=== PATIENT | female | born 1955 | race Caucasian/White ===

== ENCOUNTER 2019-08-04 06:00 | Outpatient (RCR) | payer BC, SELFPAY | END 2019-08-05 23:59 | disposition home or self-care (01) | LOC: WPT 06:00 | PROVIDERS: Family Provider Nurse Practitioner Family; PCP Nurse Practitioner Family; Referring Provider Nurse Practitioner Family; Visit Provider Nurse Practitioner Family | DX: S39.012D Strain of muscle, fascia and tendon of lower back, subsequent encounter (principal); X58.XXXD Exposure to other specified factors, subsequent encounter | CPT/HCPCS: 97163 ==

== ENCOUNTER 2019-09-11 06:38 | Outpatient (CLI) | payer BC, SELFPAY ==
--- NOTE | 2019-09-11 | CT_ITS ---
WS: [id number] CT LUMBAR SPINE TECHNIQUE: Contrast-enhanced CT of the lumbar spine with coronal and sagittal reformatted images. CLINICAL INFORMATION: ACUTE LOW BACK PAIN COMPARISON: None. DLP: 2668.[address] scans at [facility] use at least one of these dose optimization techniques: automat ed exposure control; mA and/or kV adjustment per patient size (includes targeted exams where dose is matched to clinical indication); or iterative reconstruction. FINDINGS: Mild lumbar curve convex left. Mild compression of the superior endplates at L2 and L3 with concave s uperior endplate deformity. Mild loss vertebral body height. No retropulsion. Vertebral body heights are otherwise well preserved. Superior endplate compression at L2 and L3 have an subacute appearance with visualized fracture clefts more prominent at L2. L1-L2: Mild disc bulging with slight effacement of the ventral thecal sac. Mild right and no signific ant left foraminal narrowing. L2-L3: Mild annular bulging with slight effacement of ventral thecal sac. Mild facet arthropathy. Spi nal canal and foramen are patent. L3-L4: Tiny left foraminal protrusion with mild left foraminal narrowing. Right foramen is patent. Sp inal canal is patent. L4-L5: Mild disc bulging with slight effacement of ventral thecal sac. Mild left and no significant r ight foraminal narrowing. Mild facet arthropathy. L5-S1: No significant disc bulging. Spinal canal and foramen are patent. Mild to moderate facet arthr opathy. Partially visualized large left renal cyst measuring 5.5 CM. Smaller left renal cysts. Larger cyst de monstrates some peripheral calcification. Small right renal cyst. Adrenal glands are normal. Infrarenal abdominal aortic aneurysm with peripheral mural thrombus is only partially visualized. Fus iform aneurysm measures approximately 4.0 x 3.7 x 9.7 cm AP by transverse by craniocaudal. CT/CT lumbar spine w con [id number] IMPRESSION: 1. Mild compression of the superior endplates L2 and L3 have an acute to subac mcgrath appearance. No retropulsion. Mild loss vertebral body height with concave s uperior endplate deformities. 2. No high-grade central canal stenosis. 3. Partially evaluated infrarenal abdominal aortic aneurysm measuring 4.0 x 3. 7 x 9.7 cm AP by transverse by craniocaudal.This can be further evaluated with CTA.
--- NOTE | 2019-09-11 06:50 | USCV_ITS ---
Miladys Henriquez Age: 64 Gender: F : 1955 Exam Date: 09/11/2019 07:13 Ordering Phys: Pam Woo Technologist: Gurwinder Puente Exam Location[place] [facility] [place] Indication: AAA HISTORY: Diameter (cm) AP x Transverse x Length Velocity (cm/s) Waveform Prox Aorta: 2.15 x 1.81 x 67.10 Mid Aorta: 2.98 x 3.51 x 59.10 Distal Aorta: 4.01 x 4.31 x 34.00 Right Iliac Prox: 0.97 x 1.39 x 218.80 Left Iliac Prox: 1.10 x 1.45 x 103.00 Stent Prox Landing x x Aneurysmal Sac Max x x Lt Lat Sac Dim Rt Lat Sac Dim Stent Dist Landing x x Right Iliac Stent x x Left Iliac Stent x x Right Renal Art Left Renal Art FINDINGS: CONCLUSIONS Moderate arteriovascular disease within the abdominal aorta. AAA in the distal aorta measuring 4.2 x 4.4 cm AP x transverse with peripheral mural thrombus. No evidence of bilateral iliac aneurysm. Stephen Marino MD (Electronically Signed) Final Date: 11 Sep 2019 12:45 S
[2019-09-11] MEDS: iodixanol 320 mg/mL 100mL Btl IV (08:38)
== END 2019-09-11 06:39 | disposition home or self-care (01) ==
PROVIDERS: PCP Nurse Practitioner Family; Visit Provider Nurse Practitioner Family
DX: M54.5 Low back pain (principal); I71.4 Abdominal aortic aneurysm, without rupture
CPT/HCPCS: 72132; 76706

== ENCOUNTER 2019-10-03 08:12 | Outpatient (CLI) | payer BC, SELFPAY ==
--- NOTE | 2019-10-03 08:17 | US_ITS ---
WS: [id number] RENAL ULTRASOUND HISTORY: CYST OF KIDNEY COMPARISON: None available. TECHNIQUE: 2-D and color Doppler imaging of the kidney submitted. Right kidney: 10.2 cm x 5.0 cm x 4.7 cm. No hydronephrosis. No cortical thinning. Small cortical based cysts within the kidney. The largest me asures 1.3 cm in the mid kidney. No solid mass. Left kidney: 14.7 cm x 5.2 cm x 5.6 cm. Minimally complex cyst from the upper pole measures 6.2 x 5.5 x 5.5 cm. There are additional small co rtical cysts throughout the kidney which are minimally complex. No solid mass. Aorta: Normal. Urinary Bladder: Well-distended urinary bladder. There is artifact in the urinary bladder which may b e air. US/US renal BI* [id number] IMPRESSION: 1. Bilateral renal cysts with no obstruction. 2. Artifact in the urinary bladder is likely air. Correlate for cystitis or ai r producing organisms.
== END 2019-10-03 08:13 | disposition home or self-care (01) ==
LOC: RAD 08:15
PROVIDERS: PCP Nurse Practitioner Family; Visit Provider Nurse Practitioner Family
DX: N28.1 Cyst of kidney, acquired (principal)
CPT/HCPCS: 76770

== ENCOUNTER → 2019-10-14 08:22 | Outpatient (BNVA) | payer BC, SELFPAY | PROVIDERS: PCP Nurse Practitioner Family; Referring Provider Nurse Practitioner Family; Visit Provider Anesthesiology Pain Medicine | DX: G89.29 Other chronic pain (principal); M54.9 Dorsalgia, unspecified; M47.816 Spondylosis without myelopathy or radiculopathy, lumbar region; S32.000A Wedge compression fracture of unspecified lumbar vertebra, initial encounter for closed fracture; X58.XXXA Exposure to other specified factors, initial encounter; Z90.49 Acquired absence of other specified parts of digestive tract; Z79.899 Other long term (current) drug therapy | CPT/HCPCS: 99204 ==

== ENCOUNTER → 2019-11-13 09:11 | Outpatient (BNVA) | payer BC, SELFPAY | PROVIDERS: PCP Nurse Practitioner Family; Visit Provider Anesthesiology Pain Medicine | DX: G89.29 Other chronic pain (principal); M47.816 Spondylosis without myelopathy or radiculopathy, lumbar region; S32.000A Wedge compression fracture of unspecified lumbar vertebra, initial encounter for closed fracture; M54.9 Dorsalgia, unspecified; M25.551 Pain in right hip; X58.XXXA Exposure to other specified factors, initial encounter; Z90.49 Acquired absence of other specified parts of digestive tract | CPT/HCPCS: 99214 ==

== ENCOUNTER → 2019-12-02 12:24 | Outpatient (BNVA) | payer BC, SELFPAY | PROVIDERS: PCP Nurse Practitioner Family; Visit Provider Anesthesiology Pain Medicine | DX: G89.29 Other chronic pain (principal); M54.41 Lumbago with sciatica, right side; M25.551 Pain in right hip; M54.9 Dorsalgia, unspecified | CPT/HCPCS: 20610; 77002; 77003; J1030; J3490 ==

== ENCOUNTER 2019-12-15 09:54 | Outpatient (CLI) | payer BC, SELFPAY ==
--- NOTE | 2019-12-15 10:15 | CT_ITS ---
WS: [id number] CT LUMBAR SPINE, noncontrast. HISTORY: Fracture TECHNIQUE: Contiguous 2.5 mm axial imaging are performed. Sagittal and coronal reformats are submitte d and reviewed. All CT scans at [facility] use at least one of these dose optimization te chniques: automated exposure control; mA and/or kV adjustment per patient size (includes targeted exa ms where dose is matched to clinical indication); or iterative reconstruction. IV contrast: None DLP: 1891.75 mGycm COMPARISON: 09/11/2019 Mild LEFT convex curvature of the lumbar spine is unchanged. L2 and L3 compression fractures with mil d sclerosis indicating healing along the superior endplates. Fractures approximately 20% without retr opulsion. There is a new T12 compression fracture of approximately 30% which is biconcave. No retropu lsion. New L4 compression fracture involving the superior endplate by 10%. There is mild sclerosis al paris the superior endplate. No significant retropulsion. L1-2: Mild annular disc bulging. Mild effacement of ventral thecal sac without significant stenosis. L2-3: Diffuse annular disc bulging. Mild effacement of the ventral thecal sac. No stenosis. L3-4: Diffuse annular disc bulging and mild osteophytic ridging. Broad-based shallow LEFT foraminal d isc protrusion causing mild contact upon L3. L4-5: Mild annular disc bulging with a shallow LEFT foraminal disc protrusion with no nerve root cont act. L5-S1: Mild osteophytic ridging with a central disc protrusion. No stenosis. Abdominal aortic aneurysm extends over length of 10.5 cm with a maximum transverse diameter 4.4 cm. P robably not changed significantly since the prior study. Large superior pole LEFT renal cyst with a m aximum diameter 5.[address]/CT lumbar spine wo con* [id number] IMPRESSION: 1. Stable subacute L2 and L3 compression fractures involving the superior endp lates. 2. New since 09/11/2019 is a biconcave fracture at T12 of 30% without retropulsi on. 3. New since 09/21/2019 is mild anterior compression fracture of L4 by 10% with out retropulsion. 4. Stable abdominal aortic aneurysm with a maximum transverse diameter 4.4 cm. 5. No significant central stenosis.
== END 2019-12-15 09:55 | disposition home or self-care (01) ==
LOC: RADWPI 10:00
PROVIDERS: PCP Nurse Practitioner Family; Visit Provider Licensed Practical Nurse
DX: S32.020A Wedge compression fracture of second lumbar vertebra, initial encounter for closed fracture (principal); S32.030A Wedge compression fracture of third lumbar vertebra, initial encounter for closed fracture; S32.040A Wedge compression fracture of fourth lumbar vertebra, initial encounter for closed fracture; S22.088A Other fracture of T11-T12 vertebra, initial encounter for closed fracture; X58.XXXA Exposure to other specified factors, initial encounter; G89.29 Other chronic pain; S32.000A Wedge compression fracture of unspecified lumbar vertebra, initial encounter for closed fracture; M54.41 Lumbago with sciatica, right side; M47.816 Spondylosis without myelopathy or radiculopathy, lumbar region; M54.9 Dorsalgia, unspecified; M48.061 Spinal stenosis, lumbar region without neurogenic claudication; Z90.49 Acquired absence of other specified parts of digestive tract
CPT/HCPCS: 72131; 99214

== ENCOUNTER → 2019-12-23 13:24 | Outpatient (BNVA) | payer BC, SELFPAY | PROVIDERS: PCP Nurse Practitioner Family; Visit Provider Anesthesiology Pain Medicine | DX: M47.816 Spondylosis without myelopathy or radiculopathy, lumbar region (principal); S32.000A Wedge compression fracture of unspecified lumbar vertebra, initial encounter for closed fracture; M54.9 Dorsalgia, unspecified; X58.XXXA Exposure to other specified factors, initial encounter | CPT/HCPCS: 64493; 64494; 64495; 99214; J3490 ==

== ENCOUNTER 2020-01-06 11:44 | Outpatient (CLI) | payer BC, SELFPAY ==
--- NOTE | 2020-01-06 15:15 | XR_ITS ---
WS: [id number] SCREENING DEXA SCAN [employer] CLINICAL INFORMATION: Fracture COMPARISON: None. FINDINGS: The L1-L4 bone mineral density measures 0.928 g/cm2. This corresponds to a T score score of -2.1 and Z score of -1.4. Left femoral neck bone mineral density measures 0.663 g/cm2. This corresponds to a T score of -2.7 an d Z score of -2.2. Right femoral neck bone mineral density measures 0.651 g/cm2. This corresponds to a T score -2.8of an d Z score of -2.2. Mean femoral neck bone mineral density measures 0.657 g/cm2. This corresponds to a T score of -2.8 an d Z score of -2.2. XR/XR DEXA axial skeleton* [id number] IMPRESSION: Osteoporosis Patient's FRAX calculated 10 year probability for major osteoporotic fracture i s 30.1 % and osteoporotic hip fracture is 6.8%.
== END 2020-01-06 11:45 | disposition home or self-care (01) ==
LOC: RADWPI 11:50
PROVIDERS: PCP Nurse Practitioner Family; Visit Provider Licensed Practical Nurse
DX: S32.000A Wedge compression fracture of unspecified lumbar vertebra, initial encounter for closed fracture (principal); X58.XXXA Exposure to other specified factors, initial encounter; M81.0 Age-related osteoporosis without current pathological fracture; G89.29 Other chronic pain; M47.816 Spondylosis without myelopathy or radiculopathy, lumbar region; M54.9 Dorsalgia, unspecified; Z90.49 Acquired absence of other specified parts of digestive tract
CPT/HCPCS: 77080; 99213

== ENCOUNTER → 2020-01-20 13:38 | Outpatient (BNVA) | payer BC, SELFPAY | PROVIDERS: PCP Nurse Practitioner Family; Visit Provider Anesthesiology Pain Medicine | DX: M47.816 Spondylosis without myelopathy or radiculopathy, lumbar region (principal); M54.9 Dorsalgia, unspecified | CPT/HCPCS: 64493; 64494; 64495; J3490 ==

== ENCOUNTER → 2020-02-04 09:18 | Outpatient (BNVA) | payer BC, SELFPAY | PROVIDERS: PCP Nurse Practitioner Family; Visit Provider Anesthesiology Pain Medicine | DX: G89.29 Other chronic pain (principal); M47.816 Spondylosis without myelopathy or radiculopathy, lumbar region; M54.9 Dorsalgia, unspecified; S32.000A Wedge compression fracture of unspecified lumbar vertebra, initial encounter for closed fracture; X58.XXXA Exposure to other specified factors, initial encounter; Z90.49 Acquired absence of other specified parts of digestive tract; Z79.891 Long term (current) use of opiate analgesic | CPT/HCPCS: 99213; 99214 ==

== ENCOUNTER 2020-02-04 11:09 | Outpatient (CLI) | payer BC, SELFPAY ==
--- NOTE | 2020-02-04 11:14 | XR_ITS ---
WS: [id number] LUMBAR SPINE TECHNIQUE: 5 views of the lumbar spine CLINICAL INFORMATION: pain, poss. new compression fracture COMPARISON: CT 12/14 FINDINGS: Osteopenia. Mild lumbar curve convex left. Bladder stimulator. Vascular calcification. Cholecystecto my clips. Anterior wedging lower thoracic spine. Mild compression superior endplates with concave compression deformities at L2, L3, L4, and L5. Mild compression of the inferior endplate at L1. Disc space narrowing with vacuum disc phenomenon worse at L1-2. Mild disc space narrowing L3-L4 and L4-L5. Moderate facet arthropathy lower lumbar spine. Aort ic calcification. XR/XR lumbar spine min 4V [id number] IMPRESSION: 1. Osteopenia with mild lumbar curve. 2. New mild compression deformity involving the superior endplate of L5 appear s new since the prior CT December 15 2019. This can be further evaluated with lum bar spine CT. 3. Mild compression deformities at L2, L3, and L4 appear stable. 4. Chronic anterior wedging and compression at T12 appears stable.
== END 2020-02-04 11:10 | disposition home or self-care (01) ==
LOC: RADWPI 11:11
PROVIDERS: Family Provider Nurse Practitioner Family; PCP Nurse Practitioner Family; Visit Provider Anesthesiology Pain Medicine
DX: M85.88 Other specified disorders of bone density and structure, other site (principal); S22.080A Wedge compression fracture of T11-T12 vertebra, initial encounter for closed fracture; X58.XXXA Exposure to other specified factors, initial encounter
CPT/HCPCS: 72114

== ENCOUNTER → 2020-02-10 11:55 | Outpatient (BNVA) | payer BC, SELFPAY | PROVIDERS: Family Provider Nurse Practitioner Family; PCP Nurse Practitioner Family; Visit Provider Nurse Practitioner Family | DX: Z11.59 Encounter for screening for other viral diseases (principal); Z20.828 Contact with and (suspected) exposure to other viral communicable diseases; J06.9 Acute upper respiratory infection, unspecified | CPT/HCPCS: 87635 ==

== ENCOUNTER 2020-03-22 12:40 | Outpatient (CLI) | payer BC, SELFPAY ==
--- NOTE | 2020-03-22 13:00 | CT_ITS ---
WS: [id number] Exam: CT angio abdomen [id number] Date/Time of Exam: 03/22/2020 1:11 PM Reason For Exam: AAA DLP: 661.[address] scans at [facility] use at least one of these dose optimization techniques: automat ed exposure control; mA and/or kV adjustment per patient size (includes targeted exams where dose is matched to clinical indication); or iterative reconstruction. Compared to CT scan of the lumbar spine performed 12/15/2019. CTA of the abdomen is performed in the axial plane with sagittal coronal reformatted images. 100 mL o f nonionic intravenous contrast administered. An infrarenal abdominal aortic aneurysm is identified that measures 4.4 cm in greatest transverse moni meter. There is a large amount of mural thrombus in the aneurysm. No dissection or leakage identified . The aneurysm is stable in size. The celiac, SMA and bilateral renal arteries are patent. The DENVER is also patent. The iliac bifurcation demonstrates atherosclerotic plaquing but no aneurysm identified in the iliac region. Mild groundglass infiltrate in the left lower lobe as well as the posterior basal segment of the righ t lower lobe. This is nonspecific and could represent either pneumonia or chronic change. The liver a nd spleen are unremarkable. Hiatal hernia noted. The gallbladder is surgically absent. A 5.9 cm cyst is seen at the upper pole of the left kidney. There are additional smaller bilateral renal cysts note d. Normal adrenal glands. No renal obstruction. The pancreas appears normal. Small bowel loops are no t dilated. No significant large bowel abnormality seen. Moderate amount of stool in the colon. No valdez e air. No lymphadenopathy. The portal vein and IVC are patent. A neurostimulator is noted along the l eft flank region. Leads extend into the region of the sacrum. No destructive bone lesions. Stable ap pearing insufficiency compression fractures of T12, L2, L3 and L4 noted. No new fractures are seen. CT/CT angio abdomen [id number] IMPRESSION: 1. Infrarenal abdominal aortic aneurysm measuring 4.4 cm in greatest transverse diameter stable in appearance. There is a large amount of mural thrombus in th e aneurysm. No dissection or leakage. 2. The major branches of the abdominal aorta as well as the iliac bifurcation a re patent. 3. Groundglass infiltrates in both lung bases. This could represent either mix mill tender pili change or pneumonia. 4. Additional nonacute findings in the abdomen as detailed above.
[2020-03-22 13:32] LABS: Blood Urea Nitrogen 7 mg/dL (8-23)
[2020-03-22] MEDS: iohexol 350 mg/mL 100 mL Btl IV (13:47)
== END 2020-03-22 12:41 | disposition home or self-care (01) ==
LOC: RADWPI 12:44
PROVIDERS: PCP Nurse Practitioner Family; Visit Provider Internal Medicine Cardiovascular Disease
DX: I71.4 Abdominal aortic aneurysm, without rupture (principal); R91.8 Other nonspecific abnormal finding of lung field
CPT/HCPCS: 74175; 82565; 84520; Q9967

== ENCOUNTER → 2020-03-24 10:38 | Outpatient (BNVA) | payer BC, SELFPAY | PROVIDERS: PCP Nurse Practitioner Family; Referring Provider Nurse Practitioner Family; Visit Provider Internal Medicine | DX: E27.1 Primary adrenocortical insufficiency (principal); E55.9 Vitamin D deficiency, unspecified; K21.9 Gastro-esophageal reflux disease without esophagitis; M35.9 Systemic involvement of connective tissue, unspecified; M81.0 Age-related osteoporosis without current pathological fracture; M80.00XD Age-related osteoporosis with current pathological fracture, unspecified site, subsequent encounter for fracture with routine healing; R32 Unspecified urinary incontinence | CPT/HCPCS: 99205 ==

== ENCOUNTER → 2020-03-25 10:52 | Outpatient (BNVA) | payer BC, SELFPAY | PROVIDERS: PCP Nurse Practitioner Family; Visit Provider Internal Medicine | DX: K21.9 Gastro-esophageal reflux disease without esophagitis (principal); E55.9 Vitamin D deficiency, unspecified; E27.1 Primary adrenocortical insufficiency; M35.9 Systemic involvement of connective tissue, unspecified; M81.0 Age-related osteoporosis without current pathological fracture | CPT/HCPCS: 82306 ==

== ENCOUNTER → 2020-03-26 11:08 | Outpatient (BNVA) | payer BC, SELFPAY | PROVIDERS: PCP Nurse Practitioner Family; Visit Provider Internal Medicine | DX: E27.1 Primary adrenocortical insufficiency (principal); E55.9 Vitamin D deficiency, unspecified; K21.9 Gastro-esophageal reflux disease without esophagitis; M35.9 Systemic involvement of connective tissue, unspecified; M81.0 Age-related osteoporosis without current pathological fracture | CPT/HCPCS: 80053; 82310; 82784; 83516; 83970; 84100; 84439; 84443 ==

== ENCOUNTER → 2020-04-13 09:33 | Outpatient (BNVA) | payer BC, SELFPAY | PROVIDERS: PCP Nurse Practitioner Family; Visit Provider Nurse Practitioner Family | DX: E87.1 Hypo-osmolality and hyponatremia (principal) | CPT/HCPCS: 80048 ==

== ENCOUNTER → 2020-04-21 13:50 | Outpatient (BNVA) | payer BC, SELFPAY | PROVIDERS: PCP Nurse Practitioner Family; Visit Provider Anesthesiology Pain Medicine | DX: M47.816 Spondylosis without myelopathy or radiculopathy, lumbar region (principal); M54.9 Dorsalgia, unspecified; S32.000A Wedge compression fracture of unspecified lumbar vertebra, initial encounter for closed fracture; X58.XXXA Exposure to other specified factors, initial encounter; Z79.891 Long term (current) use of opiate analgesic | CPT/HCPCS: 64635; 64636; J1030 ==

== ENCOUNTER 2020-04-27 08:12 | Outpatient (CLI) | payer BC, SELFPAY ==
[2020-04-27 08:32] VITALS: BMI 28.1
--- NOTE | 2020-04-27 08:32 | NMCV_ITS ---
NM alessandro perf SPECT r/s* [id number] Miladys Henriquez Age: 65 Gender: F : 1955 Exam Date: 04/27/2020 09:25 Ordering Phys: Iman oRmero MD ([email or web address]) Technologist: AIMEE Steiner Exam Location: [facility] [place] Indications: SOB STRESS TEST Please see separate stress test report in [facility] for full findings IMAGE PROTOCOL Rest/Stress 1 Exercise Day Radiopharmaceutical Dose (mCi) Administration Site Administered by Rest: Tc-99m 10.9 IV AIMEE Steiner Sestamibi Stress:Tc-99m 32.2 IV AIMEE Souza Sestamiedwin Rest: 27-Apr-2020 60 Discovery 630 Stress: 27-Apr-2020 30 Discovery 630 Radiopharmaceutical was injected at 85 % maximum heart rate. Images obtained in supine and prone position. SPECT RESULTS Technical Quality: Good Raw Data Analysis: Breast attenuation Image Corrections: No attenuation or motion correction applied Summed Stress Score: 0 Summed Rest Score: 0 Summed Difference Score: 0 PERFUSION FINDINGS Uniform Ibrahima tracer uptake with no significant perfusion abnormalities. FUNCTIONAL RESULTS (calculated via Gated SPECT) Stress Image LV EF (%): 82 Stress EDV (mL):45 TID: 0.84 Stress ESV (mL):8 FUNCTIONAL FINDINGS: Segmental wall motion analysis revealed mild hypokinesia of the LV apex IMPRESSIONS 1. Unremarkable myocardial perfusion imaging 2. Normal LV ejection fraction of 82%. 3. LV wall motion analysis revealing no gross wall motion abnormalities. 4. Normal LV volume. No significant coronary ischemia, based on the above findings Dr Lida Salas MD [facility] (Electronically Signed) Final Date: 04 May 2020 01:56 S
--- NOTE | 2020-04-27 08:32 | ECG_ITS ---
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 Interpretive Statements NAME OF STUDY: EXERCISE SESTAMIBI STRESS TEST INDICATION: Chest Pain Baseline blood pressure of 126/85 mm Hg, heart rate 82 beats per minute. EKG showed normal sinus rhythm, normal axis with nonspecific ST depression. The patient exercised for 2 minutes 30 seconds on a standard Lazaro protocol. Patient attained a maximum heart rate of 140 beats per minute(89% of the maximum predicted heart rate) with a blood pressure at the peak exercise of 151/100 mm Hg. The EKG at the peak exercise revealed sinus tachycardia with no significant ST-T wave changes. Interpretation limited by baseline artifact. Patient did not have any chest pain or any significant arrhythmis with the exercise. During the recovery phase, there were no new changes. Blood pressure at the end of the recovery phase was 146/88 mm Hg with a heart rate of 87 beats per minute and oxygen saturation 98%. Isolated PVCs noted in recovery. CONCLUSION: 1. Normal EKG response to treadmill exercise. 2. No exercise-induced chest pain or cardiac arrhythmia 3. Decreased exercise tolerance, attained a maximum of 4.6 METs. Maximum VO2 of 16.1 mL/kg/min. 4. Baseline normal blood pressure with normal response to exercise. 5. Exaggerated heart rate response with exercise. 6. Perfusion scan will be documented separately. Electronically Signed On 05-03-2020 17:40:44 CAR FILLER by Josie Navarrete M.D. [id number]
[2020-04-27 10:09] VITALS: BP 174/94; PULSE 97
[2020-04-27 11:36] LABS: Anion Gap 15.5 (5-19); Blood Urea Nitrogen 11 mg/dL (8-23); Calcium 8.8 mg/dL (8.5-10.5); Carbon Dioxide 25 mmol/L (22-29); Chloride 92 mmol/L (98-107); Glomerular Filtration Rate 63.2 mL/min (90-130); Glucose 104 mg/dL (65-115); Osmolality Calculated 268 mOsm/kg (285-295); Potassium 3.5 mmol/L (3.5-5.1); Sodium 129 mmol/L (136-145)
[2020-05-02 22:07] LABS: Plasma Renin Activity LC/MS/MS 9.09 ng/mL/h (0.25-5.82)
== END 2020-04-27 08:13 | disposition home or self-care (01) ==
LOC: CDL 08:13
PROVIDERS: Internal Medicine; PCP Nurse Practitioner Family; Visit Provider Internal Medicine Cardiovascular Disease
DX: R06.02 Shortness of breath (principal); R07.9 Chest pain, unspecified; E27.1 Primary adrenocortical insufficiency
CPT/HCPCS: 36415; 78452; 80048; 84244; 93017; A9500

== ENCOUNTER → 2020-05-03 12:48 | Outpatient (BNVA) | payer BC, SELFPAY | PROVIDERS: PCP Nurse Practitioner Family; Visit Provider Anesthesiology Pain Medicine | DX: M47.816 Spondylosis without myelopathy or radiculopathy, lumbar region (principal); M54.9 Dorsalgia, unspecified; S32.000D Wedge compression fracture of unspecified lumbar vertebra, subsequent encounter for fracture with routine healing; X58.XXXD Exposure to other specified factors, subsequent encounter | CPT/HCPCS: 64635; 64636; J1030 ==

== ENCOUNTER → 2020-05-05 08:36 | Outpatient (BNVA) | payer BC, SELFPAY | PROVIDERS: PCP Nurse Practitioner Family; Visit Provider Internal Medicine | DX: E27.1 Primary adrenocortical insufficiency (principal); E87.1 Hypo-osmolality and hyponatremia; M80.00XD Age-related osteoporosis with current pathological fracture, unspecified site, subsequent encounter for fracture with routine healing | CPT/HCPCS: 99213 ==

== ENCOUNTER → 2020-05-10 09:47 | Outpatient (BNVA) | payer OTHER, SELFPAY | PROVIDERS: PCP Nurse Practitioner Family; Visit Provider Internal Medicine | DX: E87.1 Hypo-osmolality and hyponatremia (principal) | CPT/HCPCS: 80048 ==

== ENCOUNTER → 2020-05-18 13:45 | Outpatient (BNVA) | payer OTHER, SELFPAY | PROVIDERS: PCP Nurse Practitioner Family; Visit Provider Anesthesiology Pain Medicine | DX: G89.29 Other chronic pain (principal); M47.816 Spondylosis without myelopathy or radiculopathy, lumbar region; S32.000D Wedge compression fracture of unspecified lumbar vertebra, subsequent encounter for fracture with routine healing; X58.XXXD Exposure to other specified factors, subsequent encounter; M54.9 Dorsalgia, unspecified; M54.5 Low back pain; Z90.49 Acquired absence of other specified parts of digestive tract; Z79.891 Long term (current) use of opiate analgesic | CPT/HCPCS: 99214 ==

== ENCOUNTER → 2020-06-01 09:58 | Outpatient (BNVA) | payer OTHER, SELFPAY | PROVIDERS: PCP Nurse Practitioner Family; Visit Provider Internal Medicine | DX: E87.1 Hypo-osmolality and hyponatremia (principal) | CPT/HCPCS: 80048 ==

== ENCOUNTER → 2020-06-03 10:16 | Outpatient (BNVA) | payer OTHER, SELFPAY | PROVIDERS: PCP Nurse Practitioner Family; Visit Provider Internal Medicine | DX: E27.1 Primary adrenocortical insufficiency (principal); E87.1 Hypo-osmolality and hyponatremia; I71.4 Abdominal aortic aneurysm, without rupture; M80.00XD Age-related osteoporosis with current pathological fracture, unspecified site, subsequent encounter for fracture with routine healing | CPT/HCPCS: 99214 ==

== ENCOUNTER → 2020-07-13 10:42 | Outpatient (BNVA) | payer OTHER, SELFPAY | PROVIDERS: PCP Nurse Practitioner Family; Visit Provider Anesthesiology Pain Medicine | DX: G89.29 Other chronic pain (principal); M54.41 Lumbago with sciatica, right side; M47.816 Spondylosis without myelopathy or radiculopathy, lumbar region; M54.9 Dorsalgia, unspecified; S32.000D Wedge compression fracture of unspecified lumbar vertebra, subsequent encounter for fracture with routine healing; X58.XXXD Exposure to other specified factors, subsequent encounter; F17.210 Nicotine dependence, cigarettes, uncomplicated; Z90.49 Acquired absence of other specified parts of digestive tract; Z79.891 Long term (current) use of opiate analgesic | CPT/HCPCS: 99213; 99214 ==

== ENCOUNTER → 2020-07-19 10:22 | Outpatient (BNVA) | payer OTHER, SELFPAY | PROVIDERS: PCP Nurse Practitioner Family; Referring Provider Nurse Practitioner Family; Visit Provider Urology | DX: R32 Unspecified urinary incontinence (principal); R33.9 Retention of urine, unspecified; N39.0 Urinary tract infection, site not specified | CPT/HCPCS: 81003 ==

== ENCOUNTER → 2020-08-20 10:18 | Outpatient (BNVA) | payer OTHER, SELFPAY | PROVIDERS: PCP Nurse Practitioner Family; Visit Provider Internal Medicine | DX: E87.1 Hypo-osmolality and hyponatremia (principal) | CPT/HCPCS: 80048 ==

== ENCOUNTER → 2020-10-05 10:29 | Outpatient (BNVA) | payer OTHER, SELFPAY | PROVIDERS: PCP Nurse Practitioner Family; Visit Provider Anesthesiology Pain Medicine | DX: G89.29 Other chronic pain (principal); M54.9 Dorsalgia, unspecified; M47.816 Spondylosis without myelopathy or radiculopathy, lumbar region; S32.000D Wedge compression fracture of unspecified lumbar vertebra, subsequent encounter for fracture with routine healing; X58.XXXD Exposure to other specified factors, subsequent encounter; Z90.49 Acquired absence of other specified parts of digestive tract; Z79.899 Other long term (current) drug therapy; Z87.891 Personal history of nicotine dependence | CPT/HCPCS: 99213 ==

== ENCOUNTER 2020-10-25 10:15 | Outpatient (CLI) | payer OTHER, SELFPAY ==
[2020-10-25 10:56] LABS: Blood Urea Nitrogen 9 mg/dL (8-23)
--- NOTE | 2020-10-25 10:56 | CT_ITS ---
WS: [id number] CTA ABDOMEN TECHNIQUE: Noncontrast plus contrast enhanced CTA of the abdominal aorta with coronal and sagittal re formatted images and additional MIP Images. CLINICAL INFORMATION: I71.4 - Abdominal aortic aneurysm, without rupture COMPARISON: CT March 22, 2020 DLP: 686.[address] scans at [facility] use at least one of these dose optimization techniques: automat ed exposure control; mA and/or kV adjustment per patient size (includes targeted exams where dose is matched to clinical indication); or iterative reconstruction. FINDINGS: Small moderate esophageal hiatal hernia. Diffuse fatty infiltration liver. Cholecystectomy clips. Lef t renal cyst measuring 5.4 x 5.7 cm unchanged. Moderate chronic emphysematous changes in the lung bas es. Adrenal glands are normal. Normal renal parenchymal enhancement. No hydronephrosis. Additional sm aller bilateral renal cysts. Splenic granulomas. Normal appendix in the right lower quadrant. Normal celiac and SMA origins. Renal ostia are patent. Abdominal aortic aneurysm measuring 4.3 x 4.9 x 8.7 cm AP by transverse by craniocaudal unchanged fro m previous. DENVER is patent. Chronic compression deformities in the lower thoracic and lumbar spine are unchanged. CT/CT angio abdomen [id number] IMPRESSION: 1. Previously described infrarenal abdominal aortic aneurysm is unchanged krystle uring 4.3 x 4.9 x 8.7 AP by transverse by craniocaudal. 2. Celiac and SMA are patent. DENVER is patent. 3. Proximal renal arteries are patent. 4. Stable left renal cyst measuring 5.7 x 5.4 CM. 5. Prior cholecystectomy. 6. Small to moderate esophageal hiatal hernia.
[2020-10-25] MEDS: iohexol 350 mg/mL 100 mL Btl IV (11:09)
== END 2020-10-25 10:16 | disposition home or self-care (01) ==
PROVIDERS: Radiology Neuroradiology; PCP Nurse Practitioner Family; Visit Provider Internal Medicine Cardiovascular Disease
DX: I71.4 Abdominal aortic aneurysm, without rupture (principal); Q61.01 Congenital single renal cyst; Z90.49 Acquired absence of other specified parts of digestive tract; K44.9 Diaphragmatic hernia without obstruction or gangrene
CPT/HCPCS: 74175; 82565; 84520; Q9967

== ENCOUNTER → 2020-10-26 12:47 | Outpatient (BNVA) | payer OTHER, SELFPAY | PROVIDERS: PCP Nurse Practitioner Family; Visit Provider Urology | DX: N39.0 Urinary tract infection, site not specified (principal); R33.9 Retention of urine, unspecified | CPT/HCPCS: 81003 ==

== ENCOUNTER → 2020-11-25 09:54 | Outpatient (BNVA) | payer OTHER, SELFPAY | PROVIDERS: PCP Nurse Practitioner Family; Visit Provider Internal Medicine Cardiovascular Disease | DX: I71.4 Abdominal aortic aneurysm, without rupture (principal); I10 Essential (primary) hypertension; R07.2 Precordial pain | CPT/HCPCS: 80048; 85025; 85610; 87635 ==

== ENCOUNTER → 2020-12-02 05:50 | Day surgery (SDC) | payer OTHER, SELFPAY ==
[2020-12-02 06:12] VITALS: BMI 31.1
[2020-12-02 06:34] VITALS: BP 125/77; PULSE 81; RESP 16; TEMP 36.8; O2SAT 96
[2020-12-02] MEDS: diphenhydrAMINE 50 mg Capsule PO (06:50)
--- NOTE | 2020-12-02 07:45 | PC.NURSE ---
pt being sent home prior to procedure. no beds available post procedure. dr patel spoke to pt and it was decided to reschedule.
== END ==
PROVIDERS: PCP Nurse Practitioner Family; Visit Provider Internal Medicine Cardiovascular Disease
DX: Z53.9 Procedure and treatment not carried out, unspecified reason (principal)
CPT/HCPCS: J1644; J2250; J3010; J7030; Q0163

== ENCOUNTER → 2020-12-17 08:33 | Outpatient (BNVA) | payer OTHER, SELFPAY | PROVIDERS: PCP Nurse Practitioner Family; Visit Provider Internal Medicine Cardiovascular Disease | DX: Z20.822 Contact with and (suspected) exposure to COVID-19 (principal); R07.2 Precordial pain | CPT/HCPCS: 80048; 85025; 85610; 87635 ==

== ENCOUNTER 2020-12-22 07:20 | Day surgery (SDC) | payer OTHER, SELFPAY ==
[2020-12-22] VITALS (33 sets, daily range): BP systolic 95–155; BP diastolic 64–114; PULSE 66–84; RESP 16–24; TEMP 36.6–36.9; O2SAT 91–98; BMI 31.1
--- NOTE | 2020-12-22 07:30 | XACV_ITS ---
Ht: 170 cm Wt: 90 kg BSA: 2.09 m2 Gender: Female : 1955 Any Known Allergies: Other Exam Priority: Routine Indication(s): - Chest Pain in spite of Medical Tx - Chest pain Procedure(s): Procedure Description: Diagnostic procedure Procedure Description: PCI procedure Procedure Description: Left Heart Catheterization Procedure Description: Drug Eluting Coronary Stent Procedure Description: PTCA Procedure Description: Miscellaneous Procedure Description: ACT Diagnostic Cath Status: Elective Diagnostic Findings * Left Main has no disease. * Right Coronary Artery has no disease. * Proximal Left Anterior Descending: moderate 50% stenosis, THEODORE: 3 flow. * Mid Left Anterior Descending: severe 90% stenosis, THEODORE: 3 flow. * Mid Circumflex: mild 40% stenosis, THEODORE: 3 flow. * Coronary angiography shows co-dominance. Interventional Findings * Mid Left Anterior Descendin% stenosis treated with a AB MINI TREK 1.50X20 RX BALLOON, AB TREK 2.50X15 RX BALLOON, MDAdy Iglesias AIDA 3.0X26 SONYA, and MDT KHUSHBU EUPHORA RX [id number] BALLOON. 0% residual stenosis, THEODORE: 3 flow. Conclusions 1. 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 2. There is severe coronary artery disease with two vessel disease. 3. Mid Left Anterior Descending was treated with a Balloon, Balloon, Drug Eluting Stent, and Balloon. Recommendations * Continue current medical management and risk factor modification. Diagnostic RX Recommendation: PCI w/o planned CABG Clinical Evaluation EBL: 5mL-10mL Procedural Details Pre-Procedure Time Out. Identified patient by full name and date of as verbalized by the patient/guarantor. Does the consent match the physician's order: Yes. Accurate & Complete Informed Consent: Yes. Inpatient/Outpatient History & Physical on Chart: Yes. If H&P is completed, is and addenduem needed: Yes; If yes, is the addendum complete: N/A. Visualize and Verify Site with Patient/Guarantor: N/A. Relevant Radiology Images available: Yes. Pre-op teaching completed and patient verbalized understanding. The risks, benefits, and alternatives of sedation and/or procedure were discussed by physician. The patient agrees to continue. Procedure started. Admit Source: Out Patient. Current Diagnosis : Chest Pain. [facility] Clinical Fraility Score: 3: Managing Well. 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 Chest Pain Symptom Assessment: Typical Angina Symptoms. Cardiovascular Instability: No. Correct patient, site and procedure confirmed by cath team. Current diagnosis: Chest Pain; Suspected CAD. PERRLA. Strong, equal hand author's agent bilaterally. Lungs clear x 5 lobes. IV Site on Arrival: 18 gauge in the left anticubital. IV Fluids: 0.9% NaCl at KVO. 0 mL infused prior to technology lab teacher. Pre Procedural Pulses: bilateral radial was 3+. Pre Procedural Pulses: bilateral posterior tibial was Doppled. Pre Procedural Pulses: bilateral dorsalis pedis was Doppled. Oxygen started at 2liters/min via nasal canula. right radial was prepped with chloroprep then draped in the usual sterile fashion. right groin was prepped with chloroprep then draped in the usual sterile fashion. Physician notified. Baseline sample Acquired. HR: 74 BPM. Equipment: 5F - Femoral. Equipment: 5F - Radial. Equipment: 6F - Femoral. Equipment: Peripheral. Equipment: 6F - Radial. Physician arrived. Physician scrubbed in. Immediate Pre-Procedure Time Out. Correct Patient: Yes; Correct Procedure: Yes; Correct Site: Yes; Correct Patient Position: Yes; Correct Supplies: Yes; Dried Flammable Prep: Yes; Blood Products Available: N/A;. Lidocaine 1% infiltrated to the right radial. Heparinized Saline (2 units/mL), 1000 mL bag. Cardiac Cath Pack. ACIST Manifold Kit Model BT 2000. Unable to obtain radial access. MD attempting to gain access in the Femoral artery. An attempt to gain access to the right radial artery was unsuccessful. Manual pressure was held as needed to stop the bleeding. Abandoning radial approach. Unable to obtain access. Lidocaine 1% infiltrated to the right groin. Arterial access obtained with micropuncture set. A CRD 5F JL4 Diagnostic Catheter was advanced over the wire and used for left coronary angiography. Catheter removed over the standard wire. A CRD 5F JR4 Diagnostic Catheter was advanced over the wire and used for right coronary angiography. Multiple views taken of left coronary artery. Multiple views taken of right coronary artery. Catheter inserted over the standard wire. Patient's family updated. 6 greenlandic XB 3SH guide catheter was inserted over the wire. Inventory is CRD 6FR XB 3 SH GUIDE. INVENTORY IS ENDOFLATOR, COPILOT, COUGAR XT WIRE. Guide seated in the LCS. [place] guidewire was advanced through the guide catheter to lesion in the mid LAD. Inventory is TR 180cm Runthrough NS extra floppy 0.014 wire. [place] wire unable to cross lesion. Removed. [place] guidewire was advanced through the guide catheter to lesion in the mid LAD. Guidewire advanced across lesion. Inflation number : 1 A AB MINI TREK 1.50X20 RX BALLOON was prepped and advanced across the Mid LAD , then inflated to 16 ARA for 0:37 seconds. Inflation number: 2 The AB MINI TREK 1.50X20 RX BALLOON was reinflated across the Mid LAD, to 16 ARA for 0:21 seconds. Inflation number: 3 The AB MINI TREK 1.50X20 RX BALLOON was reinflated across the Mid LAD, to 16 ARA for 0:23 seconds. Balloon out. Inflation number : 4 A AB TREK 2.50X15 RX BALLOON was prepped and advanced across the Mid LAD , then inflated to 16 ARA for 0:28 seconds. Angiography performed. Balloon out. Inflation Number : 5 A JOHN Iglesias AIDA 3.0X26 SONYA -Lot Number# [id number] was prepped and advanced across the Mid LAD. The stent was deployed at 12 ARA for 0:30 seconds. EXP 06-18-2022. Stent balloon out over wire. Angiography performed. Inflation number : 6 A MDT NC EUPHORA RX [id number] BALLOON was prepped and advanced across the Mid LAD , then inflated to 12 ARA for 0:14 seconds. Inflation number: 7 The MDT NC EUPHORA RX [id number] BALLOON was reinflated across the Mid LAD, to 12 ARA for 0:11 seconds. Inflation number: 8 The MDT NC EUPHORA RX [id number] BALLOON was reinflated across the Mid LAD, to 12 ARA for 0:13 seconds. Balloon out. Angiography performed. Wire out. Angiography performed. Guide catheter out over wire. ACT drawn. Results 312 seconds. Therapeutic limits - pre-heparin administration 90-150 seconds and monitoring heparin during a vascular procedure >250 seconds. Physician review of films. Scrubbed out. A Suture was successful obtaining hemostatsis at the Right Femoral artery insertion site. Sheath(s) sutured into position with 2-0 silk and sterile 4x4's and Op-site applied over the site. No oozing or signs and symptoms of hematoma noted. Arterial sheath flushed and connected to tranducer and pressure bag with heparinized saline. Post Procedure: Pulses reassessed and unchanged. PERRLA. Strong, equal hand author's agent bilaterally. Medication's Wasted: Lidocaine 1% = 1 ml. Medication's Wasted: Nitro = 49.75 mg. Total IV fluids: 157 mL. Fluoro: 17:04. Contrast type used: Omnipaque 300 mgI/mL, 500 mL bottle. [id number]. Post-op diagnosis: Single Vessel Obstructive CAD. Complications: None. Estimated blood loss: 5mL-10mL. Procedure completed. Patient transferred by bed to CPRU. Vital chart was stopped. Access Site Site: Right Femoral artery Sheath Size: 6 Fr Hemostasis Method: Suture Hemostasis Success: Successful Procedure Medications Start: 9:59 AM Stop: 9:59 AM Medication: Versed Amount: 1 mg Route: I.V. Start: 9:59 AM Stop: 9:59 AM Medication: Fentanyl Amount: 50 mcg Route: I.V. Start: 10:01 AM Stop: 10:01 AM Medication: Versed 1 mg and Fentanyl 25 mcg Amount: 1 Route: I.V. Start: 10:05 AM Stop: 10:05 AM Medication: Nitrogylcerin Amount: 50 mcg Start: 10:08 AM Stop: 10:08 AM Medication: Versed 1 mg and Fentanyl 25 mcg Amount: 1 Route: I.V. Start: 10:18 AM Stop: 10:18 AM Medication: Versed Amount: 1 mg Route: I.V. Start: 10:28 AM Stop: 10:28 AM Medication: Heparin Amount: 8000 units Route: I.V. Start: 10:32 AM Stop: 10:32 AM Medication: Versed Amount: 1 mg Route: I.V. Start: 10:48 AM Stop: 10:48 AM Medication: Versed Amount: 1 mg Route: I.V. Start: 10:48 AM Stop: 10:48 AM Medication: Aggrastat 12.5 mg/250 mL Amount: 45 ml Route: I.V. bolus Start: 10:51 AM Stop: 10:51 AM Medication: Heparin Amount: 2000 units Route: I.V. Start: 10:53 AM Stop: 10:53 AM Medication: Aggrastat 12.5 mg/250 mL Amount: 16.2 ml/hr Route: I.V. drip Start: 11:04 AM Stop: 11:04 AM Medication: Nitrogylcerin Amount: 200 mcg Route: I.C. Start: 11:09 AM Stop: 11:09 AM Medication: Brilinta Amount: 180 mg Route: P.O. I, the attending physician, have reviewed and verified all procedure medications. Yes, all medications given per verbal order History/Risk Factors Hypertension: Yes Dyslipidemia: No Peripheral Arterial Disease (PAD): No Myocardial Infarction (IA): No Obesity: Yes Renal Disease: No Tobacco Use: Former Prior Interventions PCI: No CABG: No Valve Surgery: No Report Signatures Finalized by Iman Romero MD on 01/04/2021 08:54 PM
[2020-12-22] MEDS: diphenhydrAMINE 50 mg Capsule PO (08:09)
--- NOTE | 2020-12-22 08:31 | P.HP_ITS ---
Same Day Surgery H&P Indication for Procedure/HPI DATE OF PROCEDURE: December 22, 2020 CHIEF COMPLAINT/INDICATIONFOR SURGICAL PROCEDURE: Worsening of chest pressure along with shortness of breath in a patient with history of PAD/aneurysm PREOP DIAGNOSIS: Chest pressure PLANNED PROCEDRUE: Operation Date: 12/22/20 08:30 Proposed Procedures p Cardiac Catheterization left 9.458 R06.02(Left) - Iman Romero MD 65-year-old female past medical history significant for COPD, history of triple AAA moderate size, hypertension hyperlipidemia who has been struggling with chest pressure along with shortness of breath. 6 months ago patient had a negative stress test despite of optimization of medicine she continues to worsen not to the extent that 2-3 times a week patient has anginal symptoms it is the reason we decided to proceed with left heart cath. Today she is here for it. Patient has been explained all risk benefit and alternative for the procedure. Patient has been explained the risk of urgent emergent bypass surgery major minor bleed stroke arrhythmia hematoma infection and compartment syndrome. She would like to proceed with it. Medications/Allergies* Home Medications Medication Instructions Recorded Confirmed Type albuterol sulfate 2.5 mg INHALATION Q6H PRN 09/24/19 12/22/20 History magnesium oxide 250 mg PO DAILY 09/24/19 12/22/20 History fluoxetine 20 mg capsule 40 mg PO DAILY cap 10/14/19 12/22/20 History montelukast 10 mg tablet 10 mg PO DAILY 10/14/19 12/22/20 History cephalexin 250 mg capsule 250 mg PO DAILY cap 05/05/20 12/22/20 History ropinirole 0.5 mg tablet 2 mg PO .bedtime tab 05/05/20 12/22/20 History fluticasone fur. 100 mcg-umeclid 1 inh INHALATION DAILY 06/03/20 12/22/20 History 62.5 mcg-vilant 25 mcg inhalat.powder fluticasone propionate 50 1 spray INTRANASAL .PRN g 07/19/20 12/22/20 History mcg/actuation nasal spray,suspension methocarbamol 750 mg tablet 1,500 mg PO QID PRN tab 07/19/20 12/22/20 History omeprazole 20 mg capsule,delayed 20 mg PO .2 DAILY cap 07/19/20 12/22/20 History release potassium chloride 20 mEq 20 meq PO DAILY tab 07/19/20 12/22/20 History tablet,extended release cholecalciferol (vitamin D3) 10 10 mcg PO BID cap 10/26/20 12/22/20 History mcg (400 unit) capsule losartan 100 mg tablet 50 mg PO DAILY tab 11/11/20 12/22/20 History metformin 500 mg tablet 500 mg PO BID tab 11/11/20 12/22/20 History alendronate 70 mg PO PER PKG DIR 12/02/20 12/22/20 History Allergies/Adverse Reactions Allergy/AdvReac Type Severity Reaction Status Date / Time citalopram [From Celexa] Allergy unk Verified 12/08/20 13:36 Penicillins Allergy unk Verified 12/08/20 13:36 simvastatin Allergy unk Verified 12/08/20 13:36 sulfasalazine Allergy unk Verified 12/08/20 13:36 [From Sulfazine] Current Medications: Generic Name Dose Route Start Last Admin Trade Name Freq PRN Reason Stop Dose Admin Sodium Chloride 1,000 mls @ 50 mls/hr 12/22/20 07:30 12/22/20 08:09 Sodium Chloride 0.9% IV 12/23/20 03:29 Not Given .Q20H ONE Pertinent History/Comorbid Conditions* Medical History (Updated 07/19/20 @ 11:44 by Teri Espinoza APRN) AAA (abdominal aortic aneurysm) Abdominal aortic aneurysm [place] disease Chronic steroid use Chronic right hip pain Essential hypertension GERD (gastroesophageal reflux disease) Lumbar compression fracture Osteoporosis Recurrent UTI Urinary retention Surgical History (Updated 07/19/20 @ 16:02 by Antonio Concepcion MD) H/O cataract extraction BILATERAL H/O dilation and curettage H/O tubal ligation Hx of hysterectomy Hx of tonsillectomy Incontinence in female Status post placement of InterStim by Dr. Girma Rouse at [facility] Family History (Updated 07/19/20 @ 10:46 by Isabella Wu LPN) Father, AT AGE 69 Mother, AT AGE 37 Diabetes Emphysema lung Father COPD (chronic obstructive pulmonary disease) Father Cancer Mother UTERUS Social History Smoking and tobacco status: former smoker Alcohol intake: current Alcohol intake frequency: holidays/special occasions only Household members: spouse Marital status: Current occupational status: retired and disabled History of recent travel: No Pertinent Exam Findings alert, oriented x 3 and clear to auscultation bilaterally Conscious Sedation Assessment PATIENT ASSESSED PRIOR TO SEDATION, WITH NO CHANGE NOTED: Yes AIRWAY EVAL/ANESTHESIA PLAN: ASA II and Risks, benefits & alternatives of sedation and/or procedure discussed Recommendations Surgery/Procedure today Coding Level of Care Code Acute Technical Professional for Daniel Nicholson
--- NOTE | 2020-12-22 11:20 | PC.NURSE ---
reced pt from botany laboratory assistant post [facility]. pt alert and oriented x3. tr band on right wrist with no bruising or hematoma noted. sheath in right femoral artery connected to pressure bag. no bruising or drainage noted. pt on aggrastat and will be dcd at 1300 per verbal order. pt given 180 mg of brilinta. pt complains of no pain but a bit of pressure on her groin. pt educated on restrictions of right wrist and laying flat for the groin access. pt stated understanding. will continue to educate throughout stay. pt on monitor per protocol.
--- NOTE | 2020-12-22 12:15 | PC.NURSE ---
when checking femoral site it was noticed a bit of blood on the gauze. quarter sized hematoma noted and expressed through massage. dr patel notified and was given verbal order to dc aggrastat. sandbag put on site to help with oozing. pt again reminded of restrictions of body position. pt acknowledged understanding. will continue to monitor.
--- NOTE | 2020-12-22 13:32 | PC.NURSE ---
dressing changed due to tract bleeding. new dressing placed with no hematoma noted. sandbag placed again on groin site. will continue to monitor.
--- NOTE | 2020-12-22 13:37 | PC.NURSE ---
pt stable and ready for transport. report given to nga on [facility].
--- NOTE | 2020-12-22 14:00 | PC.NURSE ---
Transfer Note Patient transferred to [facility] room 105 from cardiac laborer pullet farm via bed. Handoff received from padmini [id number]. Patient oriented to environment and equipment. Covering service notified. Orders reviewed and will continue to monitor. Family and/or leather goods sales representative notified.
[2020-12-22] MEDS: gabapentin 300 mg Capsule PO ×2 (16:27→20:57)
[2020-12-22] MEDS: fludrocortisone 0.1 mg Tablet PO (16:27)
[2020-12-22 16:43] LABS: Partial Thromboplastin Time 75.9 SECONDS (23.9-36.7)
[2020-12-22 17:26] LABS: Glucose Point of Care 92 mg/dL (70-110)
[2020-12-22] MEDS: fentaNYL 50 mcg/mL INJ 2mL IVP (17:33)
[2020-12-22] MEDS: hydrocortisone 10 mg Tablet PO (19:42)
--- NOTE | 2020-12-22 19:49 | PC.NURSE ---
Shift Note Frequent safety and comfort rounds continue. Orders and/or nursing care completed as indicated. Patient monitored for response to intervention and treatment(s). Education provided includes bed rest and restrictions. Patient and/or promotions representative verbalized understanding. Will continue to monitor.
[2020-12-22] MEDS: isosorbide mononitrate ER 30 mg Tablet PO (20:57)
[2020-12-22] MEDS: tamsulosin 0.4 mg Capsule PO (20:57)
[2020-12-22] MEDS: pantoprazole DR 40 mg Tablet PO (20:57)
[2020-12-22] MEDS: ropinirole 2 mg Tablet PO (20:57)
[2020-12-22] MEDS: temazepam 15 mg Capsule PO (20:57)
[2020-12-22] MEDS: HYDROcodone-acetaminophen 5-325 mg Tablet 1 TAB PO (22:21)
[2020-12-23] VITALS (7 sets, daily range): BP systolic 99–139; BP diastolic 64–87; PULSE 70–91; RESP 16–24; TEMP 36.6–37; O2SAT 92–97
[2020-12-23 05:24] LABS: Basophils # 0.1 10^3/uL (0.0-0.1); Basophils % 0.9 %; Eosinophils # 0.2 10^3/uL (0.0-0.8); Eosinophils % 2.3 %; Hematocrit 33.6 % (37.0-47.0); Hemoglobin 10.8 g/dL (11.5-15.3); Lymphocytes % 23.5 %; Mean Corpuscular HGB Conc 32.1 g/dL (30.0-36.0); Mean Corpuscular Hemoglobin 29.7 pg (28.0-34.0); Mean Corpuscular Volume 92.3 fl (81-99); Mean Platelet Volume 8.9 fL (7.4-10.4); Monocytes # 0.6 10^3/uL (0.2-0.9); Monocytes % 6.4 %; Neutrophils # 5.68 10^3/uL (1.8-7.7); Neutrophils % 66.5 %; Nucleated Red Blood Cells % 0 %; Platelet Count 310 10^3/cmm (130-400); Red Blood Count 3.64 10^6/uL (4.1-5.3); Red Cell Distribution Width 13.2 % (12.1-15.1); White Blood Count 8.6 10^3/uL (4.0-10.0)
[2020-12-23 05:44] LABS: Anion Gap 13.7 (5-19); Blood Urea Nitrogen 11 mg/dL (8-23); Calcium 8.4 mg/dL (8.5-10.5); Carbon Dioxide 25 mmol/L (22-29); Chloride 99 mmol/L (98-107); Glomerular Filtration Rate 84.5 mL/min (90-130); Glucose 95 mg/dL (65-115); Osmolality Calculated 277 mOsm/kg (285-295); Potassium 3.7 mmol/L (3.5-5.1); Sodium 134 mmol/L (136-145)
--- NOTE | 2020-12-23 06:33 | PC.NURSE ---
Shift Note Frequent safety and comfort rounds continue. Orders and/or nursing care completed as indicated. Patient monitored for response to intervention and treatment(s). Education provided includes Brilinta. Patient verbalized complete understanding. Patient s/p LHC with PCI via right groin. Dressing to right groin remain c,d,i with no s/s of bleeding or hematoma formation observed. Reinforced site care and restrictions. Patient verbalized understanding. Patient denies pain or other needs. No distress observed. Will continue to monitor.
[2020-12-23 06:49] LABS: Glucose Point of Care 96 mg/dL (70-110)
[2020-12-23] MEDS: metoprolol succinate ER (24 HR) 25 mg Tablet 12.5 MG PO (08:15)
[2020-12-23] MEDS: montelukast sodium 10 mg Tablet PO (08:15)
[2020-12-23] MEDS: gabapentin 300 mg Capsule PO (08:15)
[2020-12-23] MEDS: losartan 50 mg Tablet PO (08:16)
[2020-12-23] MEDS: potassium chloride ER 20 mEq Tablet PO (08:16)
[2020-12-23] MEDS: ticagrelor 90 mg Tablet PO (08:17)
[2020-12-23] MEDS: fludrocortisone 0.1 mg Tablet PO (08:28)
[2020-12-23] MEDS: hydrocortisone 10 mg Tablet PO (08:28)
[2020-12-23] MEDS: hydroCHLOROthiazide 25 mg Tablet PO (08:28)
[2020-12-23] MEDS: pantoprazole DR 40 mg Tablet PO (08:28)
[2020-12-23] MEDS: isosorbide mononitrate ER 30 mg Tablet PO (08:28)
[2020-12-23] MEDS: tamsulosin 0.4 mg Capsule PO (08:34)
--- NOTE | 2020-12-23 10:24 | PC.CHAP ---
Pastoral Care Encounter/Spiritual Assessment Type of Contact [] Declined reporting consultant visit [] Patient/Family/Request visit [] Outpatient visit [] Follow-up visit [] Physician referral [] Code/Alert [x] Routine visit [] Staff referral [] Actively dying [] Patient sleeping [] Family support [] [] Out of room [] Palliative care [] [x] Receiving care in room [] Pre-surgical visit [] Trauma [x] Long length of stay [] ICU visit [] Other: Relational/Emotional Strength [x] Patient feels connected with others/family/visitors/staff [] Distress [] Loneliness/isolation [] Abandonment Spirituality of Patient [x] Person of Rosio [] Attends Yazidism of their Rosio [x] Believes in Prayer [] Reads Bible or Hinduism materials [] There are Spiritual issues to be addressed Bead Forming Machine Operator Interventions [x] Prayer [x] Active listening [x] Non-anxious presence [x] Spiritual/emotional support [] Crisis/trauma care [x] Spiritual counseling [] Bereavement support [] Provided bereavement packet [] Provided Bible/devotional materials [] Provided toy/stuffed animal, coloring book to patient or family member [] Provided Communion [] Anointing/[place] [] Salvation [x] Completed spiritual assessment [] Other: Impact on Illness or Injury [] Angry [] Fearful [x] Anxious [] Often cries [] Exhaustion [x] Unable to work [] Unable to attend shinto [] Unable to walk/stand [] Unable to read [] Unable to drive [] Unable to eat/drink [] Unable to sleep [] Unable to be with family [] Patient intubated [] Other: Summary has a stent nproceduer feels good has a good attitude and is going soon Time spent with patient 10 mins
[2020-12-23 11:23] LABS: Glucose Point of Care 134 mg/dL (70-110)
--- NOTE | 2020-12-23 12:35 | PC.NURSE ---
Discharge Note Patient discharged to home via wheelchair accompanied by her . Discharge instructions reviewed with patient and/or quality control representative. Mobile pharmacy medications and/or prescriptions provided. Educated pt on new meds actions, timing , possible side effects. Belongings/home medications returned. Post angiogram home care discussed to pt. Discharge packet provided to pt.
--- NOTE | 2020-12-23 13:59 | PM.DCS ---
Discharge Providers Date of Discharge: December 23, 2020 Attending Provider at Discharge: Iman Romero MD Primary Care Provider: Pam Woo Reason for Visit Reason for Visit: left heart cath Hospital Course Hospital Course 65-year-old female for worsening of chest pain shortness of breath anginal-like symptoms underwent left heart cath noted to have calcified significantly tight mid LAD lesion. It was treated with balloon angioplasty followed by drug-eluting stent placement. Excellent angiographic result was obtained. RCA and circumflex did not show any significant lesion left main was also normal. Post PCI course remained uncomplicated. Right groin wound looks good no hematoma no bruising. Blood pressure stable. Patient is on Brilinta advised to take Brilinta along with low-dose 81 mg aspirin for at least 1 year. We will discharge her home. She will be following up with Ms. Isabella Gomez cardiology nurse practitioner in 7 days. She will follow up with me in 6 to 8 weeks Physical Exam Narrative: EXAM NARRATIVE: GENERAL: Patient is alert, awake and oriented x3. NECK: No jugular vein distension. HEENT: No cyanosis. No icterus. No pallor. HEART: Regular S1 and S2. No murmur, rub or gallop. LUNGS: Clear to auscultate bilaterally. ABDOMEN: Soft, nontender and nondistended. Positive bowel sounds. No guarding, rebound or tenderness. CENTRAL NERVOUS SYSTEM: Grossly nonfocal. EXTREMITIES: Lower extremities without edema bilaterally. Discharge Data Data Completed and Pending: Pending at discharge Category Date Time Status PIERCING ARTIST request for service Routin e Exams 12/22/20 07:30 Taken Labs from last 24 hours 12/23/20 12/23/20 12/23/20 11:08 06:32 04:36 WBC RBC Hgb Hct MCV MCH MCHC RDW Plt Count MPV Neut % (Auto) Lymph % (Auto) [place] % (Auto) Eos % (Auto) Baso % (Auto) Neut # (Auto) Lymph # (Auto) [place] # (Auto) Eos # (Auto) Baso # (Auto) Nucleated RBC % (a uto) Nucleated RBCs # APTT Sodium 134 L Potassium 3.7 Chloride 99 Carbon Dioxide 25 Anion Gap 13.7 BUN 11 Creatinine 0.7 GFR Calculation 84.5 L Glucose 95 POC Glucose 134 H 96 Calculated Osmolal ity 277 L Calcium 8.4 L 12/23/20 12/22/20 12/22/20 04:36 17:20 14:45 WBC 8.6 RBC 3.64 L Hgb 10.8 L Hct 33.6 L MCV 92.3 MCH 29.7 MCHC 32.1 RDW 13.2 Plt Count 310 MPV 8.9 Neut % (Auto) 66.5 Lymph % (Auto) 23.5 [place] % (Auto) 6.4 Eos % (Auto) 2.3 Baso % (Auto) 0.9 Neut # (Auto) 5.68 Lymph # (Auto) 2.0 [place] # (Auto) 0.6 Eos # (Auto) 0.2 Baso # (Auto) 0.1 Nucleated RBC % (a uto) 0 Nucleated RBCs # 0.0 APTT 75.9 H Sodium Potassium Chloride Carbon Dioxide Anion Gap BUN Creatinine GFR Calculation Glucose POC Glucose 92 Calculated Osmolal ity Calcium Vitals: Last Vital Signs Temp 98.1 F 12/23/20 11:36 Pulse 91 12/23/20 11:36 Resp 16 12/23/20 11:36 BP 139/84 12/23/20 11:36 Pulse Ox 97 12/23/20 11:36 Discharge Plan Discharge Patient Disposition: Home Condition: Stable Prescriptions: New Brilinta 90 mg Tablet 90 mg PO BID Qty: 60 RF: 4 Chacorta Chewable Aspirin 81 mg tablet,chewable 81 mg PO DAILY Qty: 90 RF: 3 Continued losartan 100 mg tablet 50 mg PO DAILY RF: 0 magnesium oxide 250 mg magnesium tablet 250 mg PO DAILY RF: 0 albuterol sulfate 2.5 mg /3 mL (0.083 %) solution for nebulization 2.5 mg INHALATION Q6H PRN (Reason: Shortness Of Breath) RF: 0 fluoxetine 20 mg capsule 40 mg PO DAILY RF: 0 ropinirole 0.5 mg tablet 2 mg PO .bedtime RF: 0 methocarbamol 750 mg tablet 1,500 mg PO QID PRN (Reason: Muscle Pain) RF: 0 potassium chloride 20 mEq tablet extended release 20 meq PO DAILY RF: 0 fluticasone propionate [Flonase Allergy Relief] 50 mcg/actuation spray,suspension 1 spray INTRANASAL .PRN RF: 0 montelukast [Singulair] 10 mg tablet 10 mg PO DAILY RF: 0 metoprolol succinate 25 mg tablet extended release 24 hr 12.5 mg PO DAILY Qty: 60 RF: 3 isosorbide mononitrate 30 mg tablet extended release 24 hr 30 mg PO BID Qty: 60 RF: 3 cephalexin 250 mg capsule 250 mg PO DAILY RF: 0 Trelegy Ellipta 100-62.5-25 mcg blister with device 1 inh inhalation DAILY RF: 0 omeprazole 20 mg capsule,delayed release(DR/EC) 20 mg PO .2 DAILY RF: 0 gabapentin 300 mg capsule 300 mg PO TID Qty: 90 RF: 2 cholecalciferol (vitamin D3) 10 mcg (400 unit) capsule 10 mcg PO BID RF: 0 tamsulosin 0.4 mg capsule 0.4 mg PO BID Qty: 60 RF: 12 metformin 500 mg tablet 500 mg PO BID RF: 0 hydrochlorothiazide 25 mg tablet 25 mg PO DAILY Qty: 90 RF: 3 fludrocortisone 0.1 mg tablet 0.1 mg PO DAILY 90 Days Qty: 90 RF: 3 hydrocortisone 10 mg tablet 10 mg PO BID Qty: 180 RF: 3 nitroglycerin [Nitrostat] 0.4 mg tablet, sublingual 0.4 mg sublingual Q5M PRN (Reason: chest pain) Qty: 25 RF: 3 alendronate 70 mg tablet 70 mg PO PER PKG DIR RF: 0 Discharge Orders: Discharge Order (Routine); Ordered 12/23/20 Ordered By: Iman Romero Referrals: Iman Romero MD [Physician] - 02/01/21 3:15 pm (You have a cardiology followup with Dr. Romero at [facility] on February 01 at 3:15pm) Isabella Gomez FNP [Nurse Practitioner] - 12/30/20 9:45 am (You have a post procedure followup with JUSTYNA Pinto at [facility] on December 30 at 10:15am) Discharge Diet: Cardiac Patient Instructions: Aspirin (By mouth), Ticagrelor (By mouth), Left Heart Catheterization (DC), Coronary Intravascular Stent Placement (DC), Chest Pain Stoplight, Post Angiogram Home Care Instructions Discharge Attestations Time Spent in Discharge Care*: greater than 30 min Specific Discharge Activities: educating patient and educating and/or supporting family/caregiver Quality Metrics Clinical Quality Measures During this hospital stay, did patient experience: None Coding Level of Care Code Established Pt Acute Chg FW DC note Patient Type Established History Detailed Exam Detailed Medical Decision Making Moderate Complexity
== END 2020-12-23 12:28 | disposition home or self-care (01) ==
LOC: CCL 08:40 → CSU 12-23 09:00
PROVIDERS: PCP Nurse Practitioner Family; Visit Provider Internal Medicine Cardiovascular Disease
DX: I25.10 Atherosclerotic heart disease of native coronary artery without angina pectoris (principal); R07.89 Other chest pain; R06.02 Shortness of breath; J44.9 Chronic obstructive pulmonary disease, unspecified; I10 Essential (primary) hypertension; E78.5 Hyperlipidemia, unspecified; M81.0 Age-related osteoporosis without current pathological fracture; Z87.891 Personal history of nicotine dependence
CPT/HCPCS: 36415; 36416; 80048; 82962; 85025; 85347; 85730; 93454; C1725; C1769; C1874; C1887; C1894; C9600; J1644; J2250; J3010; J3246; J3490; J7030; J8499; Q0163; Q9967

== ENCOUNTER → 2020-12-30 10:50 | Outpatient (BNVA) | payer OTHER, SELFPAY | PROVIDERS: PCP Nurse Practitioner Family; Visit Provider Nurse Practitioner Family | DX: I25.10 Atherosclerotic heart disease of native coronary artery without angina pectoris (principal); Z09 Encounter for follow-up examination after completed treatment for conditions other than malignant neoplasm; I10 Essential (primary) hypertension | CPT/HCPCS: 80048 ==

== ENCOUNTER → 2021-01-04 09:00 | Outpatient (BNVA) | payer OTHER, SELFPAY | PROVIDERS: PCP Nurse Practitioner Family; Visit Provider Anesthesiology Pain Medicine | DX: G89.29 Other chronic pain (principal); M47.816 Spondylosis without myelopathy or radiculopathy, lumbar region; S32.000D Wedge compression fracture of unspecified lumbar vertebra, subsequent encounter for fracture with routine healing; X58.XXXD Exposure to other specified factors, subsequent encounter; Z90.49 Acquired absence of other specified parts of digestive tract | CPT/HCPCS: 99213 ==

== ENCOUNTER → 2021-02-08 09:31 | Outpatient (BNVA) | payer OTHER, SELFPAY | PROVIDERS: PCP Nurse Practitioner Family; Visit Provider Internal Medicine Cardiovascular Disease | DX: I25.10 Atherosclerotic heart disease of native coronary artery without angina pectoris (principal) | CPT/HCPCS: 80048 ==

== ENCOUNTER → 2021-03-01 11:10 | Outpatient (BNVA) | payer OTHER, SELFPAY | PROVIDERS: PCP Nurse Practitioner Family; Visit Provider Anesthesiology Pain Medicine | DX: G89.29 Other chronic pain (principal); M47.816 Spondylosis without myelopathy or radiculopathy, lumbar region; S32.000D Wedge compression fracture of unspecified lumbar vertebra, subsequent encounter for fracture with routine healing; X58.XXXD Exposure to other specified factors, subsequent encounter | CPT/HCPCS: 99212; 99214 ==

== ENCOUNTER 2021-04-27 12:43 | Outpatient (CLI) | payer OTHER, SELFPAY ==
--- NOTE | 2021-04-27 13:30 | CT_ITS ---
WS: [email or web address] CTA ABDOMEN TECHNIQUE: Noncontrast plus contrast enhanced CTA of the abdominal aorta with coronal and sagittal re formatted images and additional MIP Images. CLINICAL INFORMATION: I25.10 - Atherosclerotic heart disease of [place] coronary... COMPARISON: October 25, 2020 DLP: 1471.[address] scans at [facility] use at least one of these dose optimization techniques: automated e xposure control; mA and/or kV adjustment per patient size (includes targeted exams where dose is matc hed to clinical indication); or iterative reconstruction. FINDINGS: Diffuse fatty infiltration of the liver. Moderate esophageal hiatal hernia. Lung bases are well aerat ed. Adrenal glands are normal. Normal pancreatic parenchymal enhancement. Cholecystectomy clips. Port al vein and splenic vein are normal. Splenic granulomas. Normal renal parenchymal enhancement. No hyd ronephrosis. Left upper pole renal cyst measuring 5.4 x 5.3 CM. Small right renal cyst. Infrarenal abdominal aortic aneurysm with eccentric mural thrombus measures 4.5 x 4.9 x 8.6cm AP by t ransverse by craniocaudal unchanged. Celiac and SMA are patent. Renal arteries are patent. Normal sigmoid colon. Tiny fat-containing umbilical hernia. No periaortic or pelvic lymphadenopathy. No inguinal lymphadenopathy. Chronic compression superior endplate L2, L3, L4, and L5. Chronic biconc ave compression at T12. CT/CT angio abdomen [id number] IMPRESSION: 1. Unchanged infrarenal abdominal aortic aneurysm with eccentric mural thrombu s measuring 4.5 x 4.9 x 8.6 cm AP by transverse by craniocaudal. 2. Stable left upper pole renal cyst measuring 5.4 x 5.3 CM. 3. Hepatomegaly with diffuse fatty infiltration liver. 4. Cholecystectomy clips. 5. Moderate esophageal hiatal hernia. 6. Chronic compression deformities lower thoracic and lumbar spine.
[2021-04-27] MEDS: iohexol 350 mg/mL 100 mL Btl IV (15:03)
== END 2021-04-27 12:44 | disposition home or self-care (01) ==
PROVIDERS: PCP Nurse Practitioner Family; Visit Provider Nurse Practitioner Family
DX: I25.10 Atherosclerotic heart disease of native coronary artery without angina pectoris (principal); I71.4 Abdominal aortic aneurysm, without rupture; Q61.01 Congenital single renal cyst; K76.0 Fatty (change of) liver, not elsewhere classified; K44.9 Diaphragmatic hernia without obstruction or gangrene
CPT/HCPCS: 74175; Q9967

== ENCOUNTER 2021-05-09 13:58 | Outpatient (CLI) | payer OTHER, SELFPAY ==
[2021-05-09 14:43] LABS: Estmated Average Glucose 137; Hemoglobin A1C 6.4 % (4.0-6.0)
== END 2021-05-09 13:59 | disposition home or self-care (01) ==
LOC: LAB 14:01
PROVIDERS: PCP Nurse Practitioner Family; Visit Provider Internal Medicine
DX: E88.81 Metabolic syndrome and other insulin resistance (principal)
CPT/HCPCS: 36415; 83036

== ENCOUNTER 2022-01-10 12:29 | Outpatient (CLI) | payer MEDICAID, SELFPAY ==
--- NOTE | 2022-01-10 13:00 | CT_ITS ---
WS: [id number] CT ANGIOGRAPHY ABDOMEN HISTORY: AAA screening TECHNIQUE: CT angiogram is performed during IV injection. Reformation images reviewed. All CT scans a [facility] use at least one of these dose optimization techniques: automated exposure contro l; mA and/or kV adjustment per patient size (includes targeted exams where dose is matched to clinica l indication); or iterative reconstruction. CONTRAST: Omnipaque 350; 95 mL IV. DLP: 641.68 mGy.cm COMPARISON: 04/27/2021 Lung bases are clear. There is mild breathing motion artifact. Small hiatal hernia. Normal size heart . Abdominal aorta: Abdominal aortic aneurysm is reidentified and extends over a length of 10.2 cm. Maxi mum transverse diameter is 5.3 cm. Measurement taking a similar location on the prior study was 4.9 c m. Aneurysm has increased in size by 2-3 mm in transverse and anterior posterior diameter. Eccentric thrombus measures up to 2.2 cm along the LEFT lateral aneurysm. No periaortic hematoma. Celiac axis a nd the SMA are patent and normally enhancing. Mild atherosclerotic plaque at the origins of the renal arteries. Proximal common iliac arteries are both patent with mild atherosclerotic plaque. Bilateral renal cysts. There are 2 small to characterize low-attenuation cortical nodules within each kidney. Some of these are not simple cysts but very small in size. The largest upper pole LEFT kidne y measures 5.8 x 5.7 cm and contains wall calcification. Slight increase in size of the 1.4 cm low-at tenuation mass in the posterior mid RIGHT kidney has increased from 1.0 cm on the prior study. Bilate ral similar smaller low-attenuation cortical lesions are identified within the mid to lower kidneys. Prior cholecystectomy. Liver spleen and pancreas are negative. No adrenal mass. Prior compression fractures at T12, L2, L3. CT/CT angio abdomen [id number] IMPRESSION: 1. Minimal increase in size of the abdominal aortic aneurysm with a maximum di ameter 5.3 cm. This aneurysm extends over length of 10.2 cm. Aneurysm has incre ased in size by 2 to 3 mm in both transverse and AP diameter. 2. Bilateral renal cysts and too small to characterize low-attenuation nodules . 3. Prior cholecystectomy. 4. Small hiatal hernia.
[2022-01-10 13:20] LABS: Blood Urea Nitrogen 9 mg/dL (8-23); Glomerular Filtration Rate 55.8 mL/min (90-130)
[2022-01-10] MEDS: iohexol 350 mg/mL 100 mL Btl IV (13:33)
== END 2022-01-10 12:30 | disposition home or self-care (01) ==
LOC: RAD 12:30
PROVIDERS: PCP Nurse Practitioner Family; Visit Provider Internal Medicine Cardiovascular Disease
DX: I25.10 Atherosclerotic heart disease of native coronary artery without angina pectoris (principal); I71.4 Abdominal aortic aneurysm, without rupture; I10 Essential (primary) hypertension; Z87.891 Personal history of nicotine dependence
CPT/HCPCS: 74175; 82565; 84520; 99214

== ENCOUNTER 2022-01-25 12:15 | Outpatient (CLI) | payer MEDICAID, SELFPAY ==
--- NOTE | 2022-01-25 13:04 | XR_ITS ---
WS: [email or web address] SCREENING DEXA SCAN [facility] CLINICAL INFORMATION: OSTEOPOROSIS COMPARISON: January 06, 2020 FINDINGS: The L1-L4 bone mineral density measures 0.885 g/cm2. This corresponds to a T score score of -2.5 and Z score of -1.5. Left femoral neck bone mineral density measures 0.674 g/cm2. This corresponds to a T score of -2.6 an d Z score of -1.9. Right femoral neck bone mineral density measures 0.647 g/cm2. This corresponds to a T score -2.9of an d Z score of -2.1. Mean femoral neck bone mineral density measures 0.661 g/cm2. This corresponds to a T score of -2.8 an d Z score of -2.0. XR/XR DEXA axial skeleton* [id number] IMPRESSION: Osteoporosis lumbar spine at the lower end of the range. Osteoporosis femoral n ecks. Patient's FRAX calculated 10 year probability for major osteoporotic fracture i s 18.4 % and osteoporotic hip fracture is 3.7%. Bone mineralization lumbar spine since 2019 has decreased -4.6% Bone mineralization femoral necks has increased 0.6% since 2020.
--- NOTE | 2022-01-25 13:07 | MM_ITS ---
WS: [email or web address] Bilateral screening 3D tomosynthesis digital mammogram, 01/25/2022 Clinical Data: SCREENING MAMMOGRAPHY Comparison: 05/02/2019, 04/26/2018, 04/08/2018. Findings: The breast parenchymal pattern shows glandular tissue. No spiculated masses or clustered calcificatio ns are seen. There are no secondary signs of carcinoma. MM/[place] [id number] Impression: 1. Negative bilateral mammogram unchanged. 2. Recommend annual screening mammograms. BIRADS: 1-Negative FOLLOW UP: 1 Year Follow-up The CAD checker bak[employer] products was used.
== END 2022-01-25 12:16 | disposition home or self-care (01) ==
LOC: RAD 12:17
PROVIDERS: PCP Nurse Practitioner Family; Visit Provider Registered Nurse
DX: Z12.31 Encounter for screening mammogram for malignant neoplasm of breast (principal); M81.0 Age-related osteoporosis without current pathological fracture
CPT/HCPCS: 77063; 77067; 77080

== ENCOUNTER → 2022-07-10 13:16 | Outpatient (BNVA) | payer MEDICAID, SELFPAY | PROVIDERS: PCP Nurse Practitioner Family; Visit Provider Nurse Practitioner Family | DX: I25.10 Atherosclerotic heart disease of native coronary artery without angina pectoris (principal); I10 Essential (primary) hypertension; I71.40 Abdominal aortic aneurysm, without rupture, unspecified; Z87.891 Personal history of nicotine dependence; Z79.82 Long term (current) use of aspirin | CPT/HCPCS: 99214 ==

== ENCOUNTER → 2022-08-16 11:02 | Outpatient (BNVA) | payer BC, MEDICAID, SELFPAY | PROVIDERS: PCP Nurse Practitioner Family; Visit Provider Internal Medicine | DX: E27.1 Primary adrenocortical insufficiency (principal); E87.1 Hypo-osmolality and hyponatremia; M81.0 Age-related osteoporosis without current pathological fracture; I71.40 Abdominal aortic aneurysm, without rupture, unspecified; E66.3 Overweight | CPT/HCPCS: 80053; 80061; 82043; 82306; 82310; 83036; 83970; 84244; 84439; 84443; 84480 ==

== ENCOUNTER 2022-08-31 11:57 | Outpatient (CLI) | payer BC, MEDICAID, SELFPAY ==
--- NOTE | 2022-08-31 12:00 | US_ITS ---
WS: [email or web address] THYROID ULTRASOUND HISTORY: Spink disease COMPARISON: None available. Right lobe: 1.1 cm x 1.6 cm x 3.0 cm (w x ap x l). Volume: 2.7 cm3. Small hyperechoic coarse thyroid. No nodules are identified or increased vascularity. Left lobe: 1.0 cm x 1.2 cm x 3.3 cm (w x ap x l). Volume: 2.2 cm3. Small hypertrophic coarse thyroid. No nodules are identified. No foci of calcification. Isthmus: 0.2 cm. US/US thyroid [id number] IMPRESSION: Atrophied, heterogeneous thyroid. No nodules.
== END 2022-08-31 11:58 | disposition home or self-care (01) ==
LOC: RAD 12:00
PROVIDERS: PCP Nurse Practitioner Family; Visit Provider Internal Medicine
DX: E27.1 Primary adrenocortical insufficiency (principal); E66.3 Overweight; I71.40 Abdominal aortic aneurysm, without rupture, unspecified; M81.0 Age-related osteoporosis without current pathological fracture; R73.03 Prediabetes; R13.10 Dysphagia, unspecified; E87.1 Hypo-osmolality and hyponatremia
CPT/HCPCS: 76536

== ENCOUNTER → 2022-10-30 11:31 | Outpatient (BNVA) | payer BC, MEDICAID, SELFPAY | PROVIDERS: PCP Nurse Practitioner Family; Visit Provider Internal Medicine | DX: R73.03 Prediabetes (principal) | CPT/HCPCS: 80053; 80061; 82043; 82306; 82310; 83036; 83970; 84439; 84443; 84480 ==

== ENCOUNTER 2022-11-06 08:15 | Oncology outpatient (recurring) (ONCR) | payer BC, MEDICAID, SELFPAY ==
[2022-11-06 08:38] VITALS: BP 133/92; PULSE 94; RESP 18; TEMP 36.4; O2SAT 95
[2022-11-06] MEDS: denosumab 60 mg SDV SUBCUT (08:40)
== END 2022-12-04 23:59 | disposition home or self-care (01) ==
PROVIDERS: PCP Nurse Practitioner Family; Visit Provider Internal Medicine
DX: M81.0 Age-related osteoporosis without current pathological fracture (principal)
CPT/HCPCS: 96372; J0897

== ENCOUNTER 2023-02-13 11:14 | Outpatient (CLI) | payer BC, MEDICAID, SELFPAY ==
--- NOTE | 2023-02-13 11:27 | MM_ITS ---
WS: [email or web address] BILATERAL 3D TOMOSYNTHESIS DIGITAL SCREENING MAMMOGRAPHY WITH CAD CLINICAL INFORMATION: SCREENING HISTORY: Screening mammogram. No current complaints. COMPARISON: 2021 TECHNIQUE: Bilateral CC and MLO views. FINDINGS: Scattered fibroglandular densities bilaterally. No suspicious focal mass, asymmetry, calcifications, or architectural distortion. No evidence of malignancy. Incidental punctate calcifications. A few sta ble intramammary lymph nodes. IMPRESSION: MM/[place] [id number] BI-RADS: 2-Benign FOLLOW UP: 1 Year Follow-up Recommend return to annual screening mammography.
== END 2023-02-13 11:15 | disposition home or self-care (01) ==
PROVIDERS: PCP Nurse Practitioner Family; Visit Provider Nurse Practitioner Family
DX: Z12.31 Encounter for screening mammogram for malignant neoplasm of breast (principal)
CPT/HCPCS: 77063; 77067

== ENCOUNTER → 2023-05-17 09:05 | Outpatient (BNVA) | payer BC, MEDICAID, SELFPAY | PROVIDERS: PCP Nurse Practitioner Family; Visit Provider Internal Medicine | DX: E88.810 Metabolic syndrome (principal); E87.1 Hypo-osmolality and hyponatremia; E27.1 Primary adrenocortical insufficiency; M81.0 Age-related osteoporosis without current pathological fracture; E66.3 Overweight; R13.10 Dysphagia, unspecified | CPT/HCPCS: 80053; 80061; 82043; 82306; 83036; 83690 ==

== ENCOUNTER → 2023-06-12 09:56 | Outpatient (BNVA) | payer BC, MEDICAID, SELFPAY | PROVIDERS: PCP Nurse Practitioner Family; Visit Provider Internal Medicine | DX: E55.9 Vitamin D deficiency, unspecified (principal) | CPT/HCPCS: 80048; 82607 ==

== ENCOUNTER 2023-09-19 09:41 | Oncology outpatient (recurring) (ONCR) | payer MEDICARE, MEDICAID, SELFPAY ==
[2023-09-19] MEDS: denosumab 60 mg SDV SUBCUT (10:10)
[2023-09-19 10:12] VITALS: BP 116/77; PULSE 91; RESP 16; TEMP 36.6; O2SAT 98
== END 2023-10-05 23:59 | disposition home or self-care (01) ==
PROVIDERS: PCP Nurse Practitioner Family; Visit Provider Internal Medicine
DX: M81.0 Age-related osteoporosis without current pathological fracture (principal)
CPT/HCPCS: 96372; J0897

== ENCOUNTER → 2023-10-09 13:56 | Outpatient (BNVA) | payer MEDICARE, MEDICAID, SELFPAY | PROVIDERS: PCP Nurse Practitioner Family; Visit Provider Internal Medicine | DX: I25.10 Atherosclerotic heart disease of native coronary artery without angina pectoris (principal); I10 Essential (primary) hypertension; I71.40 Abdominal aortic aneurysm, without rupture, unspecified; Z87.891 Personal history of nicotine dependence | CPT/HCPCS: 99214 ==

== ENCOUNTER 2023-10-16 08:38 | Outpatient (CLI) | payer MEDICARE, MEDICAID, SELFPAY ==
--- NOTE | 2023-10-16 | ECG_ITS ---
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 Interpretive Statements NAME OF STUDY: LEXISCAN SESTAMIBI STRESS TEST INDICATION: [cp/sob, ] Procedure: At the baseline, the blood pressure was 153/87 mmHg with a heart rate of 71 bpm. The electrocardiogram showed normal sinus rhythm, normal axis with normal ST and T's. The Lexiscan was infused over a period of 20 seconds. A total of 0.4 mg of Lexiscan was infused. The stress phase was continued for a total of 5 minutes. Heart rate was at the end of stress phase was 89 bpm and a blood pressure of 153/82 mmHg. The EKG at the peak infusion revealed normal sinus rhythm with no significant ST-T wave changes. Sestamibi was injected 20 seconds after the Lexiscan infusion. Blood pressure at the end of recovery phase was 143/84 mmHg with a heart rate of 87 bpm. Conclusion: 1. Normal EKG response to Lexiscan infusion 2. No Lexiscan induced chest pain or cardiac arrhythmia. 3. Normal blood pressure and heart rate response. 4. Sestamibi/sestamibi perfusion scan pending; see separate report. Electronically Signed On 10-22-2023 9:08:54 CDT by Yan Roman M.D. [email or web address]
[2023-10-16 08:53] VITALS: BP 143/84; PULSE 86; BMI 27.3
--- NOTE | 2023-10-16 09:08 | NMCV_ITS ---
NM alessandro perf SPECT r/s* [id number] Miladys Henriquez Age: 68 Gender: F : 1955 Exam Date: 10/16/2023 09:44 Ordering Phys: Yan Roman M.D ([email or web address]) Technologist: AIMEE Steiner Exam Location: [facility] Indications: CAD, CP, SOB STRESS TEST Please see separate stress test report in [facility] for full findings IMAGE PROTOCOL Rest/Stress 1 Lexiscan Day Radiopharmaceutical Dose (mCi) Administration Site Administered by Rest: Tc-99m 10.9 IV AIMEE Steiner Sestamibi Stress:Tc-99m 32.6 IV AIMEE Steiner Sestamibi Rest: 16-Oct-2023 60 Discovery 630 Stress: 16-Oct-2023 30 Discovery 630 0.4mg Lexiscan. Images obtained in supine and prone position. SPECT RESULTS Technical Quality: Good Raw Data Analysis: Normal Image Corrections: No attenuation or motion correction applied Summed Stress Score: 0 Summed Rest Score: 0 Summed Difference Score: 0 PERFUSION FINDINGS SPECT images demonstrate homogeneous tracer distribution throughout the myocardium. FUNCTIONAL RESULTS (calculated via Gated SPECT) Stress Image LV EF (%): 83 Stress EDV (mL):54 TID: 0.88 Stress ESV (mL):9 FUNCTIONAL FINDINGS: There is normal left ventricular systolic function. IMPRESSIONS 1. Normal myocardial perfusion imaging with no evidene of ischemia 2. LV systolic function is normal Yan Roman MD (Electronically Signed) Final Date: 16 October 2023 12:10 S
[2023-10-16] MEDS: regadenoson 0.4 Mg/5 ml Syringe 0.400000000000000022 MG IVP (10:19)
== END 2023-10-16 08:39 | disposition home or self-care (01) ==
LOC: CDL 08:39
PROVIDERS: PCP Nurse Practitioner Family; Visit Provider Internal Medicine
DX: R07.9 Chest pain, unspecified (principal); R06.02 Shortness of breath
CPT/HCPCS: 36415; 78452; 93017; 96374; A9500; J2785

== ENCOUNTER → 2023-12-04 09:26 | Outpatient (BNVA) | payer MEDICARE, MEDICAID, SELFPAY | PROVIDERS: PCP Nurse Practitioner Family; Visit Provider Internal Medicine | DX: E27.1 Primary adrenocortical insufficiency (principal); R73.03 Prediabetes; I10 Essential (primary) hypertension | CPT/HCPCS: 80048; 84439; 84443; 84480 ==

== ENCOUNTER → 2023-12-13 09:35 | Outpatient (BNVA) | payer MEDICARE, SELFPAY | PROVIDERS: PCP Nurse Practitioner Family; Visit Provider Internal Medicine | DX: E11.9 Type 2 diabetes mellitus without complications (principal); E27.1 Primary adrenocortical insufficiency; E87.1 Hypo-osmolality and hyponatremia; M80.00XD Age-related osteoporosis with current pathological fracture, unspecified site, subsequent encounter for fracture with routine healing; E66.3 Overweight; R13.10 Dysphagia, unspecified; X58.XXXD Exposure to other specified factors, subsequent encounter; Z79.84 Long term (current) use of oral hypoglycemic drugs; Z68.26 Body mass index [BMI] 26.0-26.9, adult | CPT/HCPCS: 99214 ==

== ENCOUNTER 2024-03-12 11:35 | Outpatient (CLI) | payer MEDICARE, MEDICAID, SELFPAY ==
--- NOTE | 2024-03-12 11:40 | MM_ITS ---
WS: [email or web address] BILATERAL SCREENING DIGITAL TOMOSYNTHESIS MAMMOGRAM WITH CAD HISTORY: SCREENING COMPARISON: 02/13/2023, 01/25/2022, 05/02/2019 Bilateral CC and MLO views with tomosynthesis and synthetic mammography submitted. Computer aided det ection analyzed. Breast composition: There are scattered areas of fibroglandular density. No suspicious masses, microc alcifications or architectural distortion. Focal asymmetries and masses in the upper outer quadrant o f the RIGHT breast. These have been present since 2018 and 2017. No suspicious grouping of calcificat ion. MM/MM scr tomosynthesis [id number] IMPRESSION: BI-RADS: 2 - Benign. FOLLOW UP: 1 Year Follow-up
== END 2024-03-12 11:36 | disposition home or self-care (01) ==
LOC: MOBLMAM 11:38
PROVIDERS: PCP Nurse Practitioner Family; Visit Provider Nurse Practitioner Family
DX: Z12.31 Encounter for screening mammogram for malignant neoplasm of breast (principal); R92.323 Mammographic fibroglandular density, bilateral breasts; N64.89 Other specified disorders of breast
CPT/HCPCS: 77063; 77067

== ENCOUNTER → 2024-03-17 10:23 | Outpatient (BNVA) | payer MEDICARE, SELFPAY | PROVIDERS: PCP Nurse Practitioner Family; Visit Provider Specialist | DX: M25.551 Pain in right hip (principal); M16.11 Unilateral primary osteoarthritis, right hip | CPT/HCPCS: 73502; 99204 ==

== ENCOUNTER 2024-03-24 13:38 | Oncology outpatient (recurring) (ONCR) | payer MEDICARE, SELFPAY ==
[2024-03-24 14:22] VITALS: BP 173/75; PULSE 79; RESP 18; TEMP 36.4; O2SAT 99
[2024-03-24] MEDS: denosumab 60 mg SDV SUBCUT (14:23)
== END 2024-04-05 23:59 | disposition home or self-care (01) ==
PROVIDERS: Visit Provider Internal Medicine
DX: M81.0 Age-related osteoporosis without current pathological fracture (principal); Z79.899 Other long term (current) drug therapy
CPT/HCPCS: 96372; J0897

== ENCOUNTER 2024-04-01 06:00 | Outpatient (RCR) | payer MEDICARE, SELFPAY | END 2024-04-05 23:59 | disposition home or self-care (01) | LOC: WPT 06:00 | PROVIDERS: Visit Provider Specialist | DX: M16.11 Unilateral primary osteoarthritis, right hip (principal) | CPT/HCPCS: 97162 ==

== ENCOUNTER 2024-04-06 06:00 | Outpatient (RCR) | payer MEDICARE, SELFPAY | END 2024-05-06 23:59 | disposition home or self-care (01) | LOC: WPT 06:00 | PROVIDERS: PCP Nurse Practitioner Family; Visit Provider Specialist | DX: M16.11 Unilateral primary osteoarthritis, right hip (principal) | CPT/HCPCS: 97110; 97112; 97140; 97530 ==

== ENCOUNTER 2024-04-14 13:00 | Outpatient (CLI) | payer MEDICARE, SELFPAY ==
--- NOTE | 2024-04-14 14:00 | XR_ITS ---
WS: [email or web address] SCREENING DEXA SCAN [facility] CLINICAL INFORMATION: M80.00XD - Age-related osteoporosis with current patholog... COMPARISON: 2021 FINDINGS: The L1-L4 bone mineral density measures 0.895 g/cm2. This corresponds to a T score score of -2.4 and Z score of -1.2. Left femoral neck bone mineral density measures 0.698 g/cm2. This corresponds to a T score of -2.5 an d Z score of -1.4. Right femoral neck bone mineral density measures 0.672 g/cm2. This corresponds to a T score -2.7of an d Z score of -1.7. Mean femoral neck bone mineral density measures 0.685 g/cm2. This corresponds to a T score of -2.6 an d Z score of -1.5. XR/XR DEXA axial skeleton* [id number] IMPRESSION: Osteopenia lumbar spine. Osteoporosis femoral necks. Patient's FRAX calculated 10 year probability for major osteoporotic fracture i s 19.9% and osteoporotic hip fracture is 4.5%. Bone mineral density lumbar spine increased 1.1% Bone mineral density femoral necks increased 3.6%
== END 2024-04-14 13:01 | disposition home or self-care (01) ==
PROVIDERS: PCP Nurse Practitioner Family; Visit Provider Internal Medicine
DX: Z13.820 Encounter for screening for osteoporosis (principal); M80.00XD Age-related osteoporosis with current pathological fracture, unspecified site, subsequent encounter for fracture with routine healing; M85.80 Other specified disorders of bone density and structure, unspecified site
CPT/HCPCS: 77080

== ENCOUNTER → 2024-04-22 15:14 | Outpatient (BNVA) | payer MEDICARE, SELFPAY | PROVIDERS: PCP Nurse Practitioner Family; Visit Provider Internal Medicine | DX: I25.10 Atherosclerotic heart disease of native coronary artery without angina pectoris (principal); I10 Essential (primary) hypertension; I71.40 Abdominal aortic aneurysm, without rupture, unspecified | CPT/HCPCS: 99214 ==

== ENCOUNTER 2024-05-26 12:01 | Outpatient (RCR) | payer MEDICARE, SELFPAY | END 2024-06-06 23:59 | disposition home or self-care (01) | LOC: WPT 12:01 | PROVIDERS: PCP Nurse Practitioner Family; Visit Provider Specialist | DX: M16.11 Unilateral primary osteoarthritis, right hip (principal) | CPT/HCPCS: 97110; 97112; 97530 ==

== ENCOUNTER 2024-05-26 12:30 | Oncology outpatient (recurring) (ONCR) | payer MEDICARE, SELFPAY ==
[2024-05-22 11:42] LABS: Blood Urea Nitrogen 8 mg/dL (8-23); Glomerular Filtration Rate 55.3 mL/min (90-130)
[2024-05-22] MEDS: iohexol 350 mg/mL 500 mL Btl (per mL) IV (11:51)
--- NOTE | 2024-05-22 12:00 | CT_ITS ---
WS: [email or web address] CT ANGIOGRAM CAROTID ARTERIES HISTORY: right arm pain TECHNIQUE: CT angiogram is performed of the carotid arteries. During arterial injection imaging is ob tained from the skull base to the aortic arch in 1.25 mm imaging. Coronal and sagittal reformats are submitted, MIP imaging also reviewed. Additional multiplanar reformats of the carotid arteries are kumari bmitted. NASCET criteria utilized. All CT scans at [facility] use at least one of these dose optimization techniques: automated exposure control; mA and/or kV adjustment per patient size (includ es targeted exams where dose is matched to clinical indication); or iterative reconstruction. CONTRAST: Omnipaque 350; 100 mL IV. DLP: 216.30 mGy.cm COMPARISON: None available. Right carotid: Common carotid artery: Arises normally from the innominate artery. No significant plaque or stenosis. Internal carotid artery: Focal, near circumferential plaque proximal RIGHT ICA. Stenosis estimated at 60%. External carotid artery: Patent. Left carotid: Common carotid artery: Arises normally from the arch. Scattered plaque with no high-grade stenosis. A t the bifurcation there is increasing calcified plaque with noncalcified intimal thickening. Internal carotid artery: Circumferential plaque proximal LEFT ICA with intimal thickening. Stenosis c alculated at less than 50%. External carotid artery: Patent. Right vertebral artery: Small in caliber but patent. Left vertebral artery: Dominant vertebral artery arises normally from the LEFT subclavian artery. Subclavian arteries: Mild atherosclerotic disease within both subclavian arteries. There is no high-g rade stenosis. Both subclavian arteries are well opacified with normal flow and contrast enhancement. Subclavian arteries to the axillary arteries are normal. Upper thorax: Advanced centrilobular emphysema. Moderate calcification through the aortic arch. Small amount of calcification near the origin of the great vessels but no stenosis. Thyroid gland: Normal. Osseous structures: Unremarkable. Skull base: At the skull base calcified plaque is identified to the cavernous and supraclinoid caroti d arteries. No occlusion or high-grade stenosis. CT/CT angio neck [id number] IMPRESSION: 1. No high-grade stenosis in the subclavian arteries or stenosis. 2. Mild atherosclerotic disease in the subclavian arteries, greater on the RIG HT than the LEFT. 3. RIGHT cervical ICA stenosis 60%. 4. LEFT cervical ICA stenosis less than 50%. 5. Chronic emphysema at the lung apices. 6. Moderate atherosclerotic plaque involving the aortic arch.
--- NOTE | 2024-05-26 12:30 | CT_ITS ---
WS: [email or web address] CTA THORACIC AORTA WITH AND WITHOUT HISTORY: Right arm pain TECHNIQUE: CTA imaging of the thorax is performed with and without contrast. After noncontrast imagin g is performed, CT angiogram is performed during injection of Omnipaque 350; 100 mL IV.. Sagittal and coronal reconstructions, sagittal and coronal MIP imaging is submitted. All CT scans at [facility] use at least one of these dose optimization techniques: automated exposure control; mA and/or kV adjustment per patient size (includes targeted exams where dose is matched to clinical indication) ; or iterative reconstruction. DLP: 693.79 mGy.cm COMPARISON: None available. Normal diameter of the ascending thoracic aorta at 3.0 cm. There is scattered plaque to the aortic ar ch and through the descending aorta. No aneurysm or dissection. No plaque ulceration. Small amount of plaque at the origin of the LEFT subclavian artery but no high-grade stenosis. Normal appearance of the great vessels and subclavian arteries. Normal sinotubular junction and sinus of Valsalva. Mild cardiomegaly. Dense coronary artery calcifications are identified. Extensive calcification throu ghout the LEFT anterior descending coronary artery. No pericardial or pleural effusion. Advanced cent rilobular emphysema. 4 mm nodule RIGHT middle lobe is noncalcified. Nodule was also present in 2020 w ithout increase in size. Prior CABG. Partial visualization of the proximal abdominal aortic stent graft. No adrenal mass. Part ially visualized cystic mass upper pole LEFT kidney. Small hiatal hernia. Hepatic and splenic granulo barrios. Mild anterior wedging of several thoracic vertebral bodies. Mild anterior wedging of T5, T7, T8 and T11. CT/CT angio chest [id number] IMPRESSION: 1. Mild atherosclerosis thoracic aorta. 2. No thoracic aortic aneurysm. 3. Small amount of calcified plaque origin of the great vessels with no high-g rade stenosis. 4. Centrilobular emphysema. 5. Dense coronary artery calcification in the LAD. 6. Prior cholecystectomy.
[2024-05-26] MEDS: iohexol 350 mg/mL 500 mL Btl (per mL) IV (12:37)
== END 2024-06-06 23:59 | disposition home or self-care (01) ==
LOC: RAD 05-27 → ONCMED 05-27 09:04
PROVIDERS: PCP Nurse Practitioner Family; Visit Provider Internal Medicine
DX: M81.0 Age-related osteoporosis without current pathological fracture (principal); Z79.899 Other long term (current) drug therapy; M79.601 Pain in right arm; R20.0 Anesthesia of skin; R20.2 Paresthesia of skin
CPT/HCPCS: 70498; 71275; 82565; 84520; 99213

== ENCOUNTER → 2024-07-22 09:38 | Outpatient (BNVA) | payer MEDICARE, SELFPAY | PROVIDERS: PCP Nurse Practitioner Family; Visit Provider Internal Medicine | DX: E66.3 Overweight (principal); I10 Essential (primary) hypertension; R73.03 Prediabetes; N39.0 Urinary tract infection, site not specified; E55.9 Vitamin D deficiency, unspecified | CPT/HCPCS: 80053; 80061; 82043; 82306; 83036; 84244 ==

== ENCOUNTER → 2024-07-24 09:14 | Outpatient (BNVA) | payer MEDICARE, MEDICAID, SELFPAY | PROVIDERS: PCP Nurse Practitioner Family; Visit Provider Internal Medicine | DX: E11.9 Type 2 diabetes mellitus without complications (principal); E27.1 Primary adrenocortical insufficiency; E87.1 Hypo-osmolality and hyponatremia; E66.3 Overweight; R13.10 Dysphagia, unspecified; M80.08XD Age-related osteoporosis with current pathological fracture, vertebra(e), subsequent encounter for fracture with routine healing; X58.XXXD Exposure to other specified factors, subsequent encounter | CPT/HCPCS: 99214 ==

== ENCOUNTER 2024-09-22 10:52 | Oncology outpatient (recurring) (ONCR) | payer MEDICARE, SELFPAY ==
[2024-09-22] MEDS: denosumab 60 mg SDV SUBCUT (11:55)
== END 2024-10-04 23:59 | disposition home or self-care (01) ==
LOC: ONCMED 10:53
PROVIDERS: PCP Nurse Practitioner Family; Visit Provider Internal Medicine
DX: M81.0 Age-related osteoporosis without current pathological fracture (principal); Z79.899 Other long term (current) drug therapy
CPT/HCPCS: 96372; J0897

== ENCOUNTER → 2024-11-17 09:44 | Outpatient (BNVA) | payer MEDICARE, SELFPAY | PROVIDERS: PCP Nurse Practitioner Family; Visit Provider Nurse Practitioner Family | DX: I71.40 Abdominal aortic aneurysm, without rupture, unspecified (principal); I25.10 Atherosclerotic heart disease of native coronary artery without angina pectoris; I10 Essential (primary) hypertension; I65.23 Occlusion and stenosis of bilateral carotid arteries; Z79.02 Long term (current) use of antithrombotics/antiplatelets; Z79.82 Long term (current) use of aspirin; Z87.891 Personal history of nicotine dependence; Z95.5 Presence of coronary angioplasty implant and graft; R06.02 Shortness of breath; R42 Dizziness and giddiness | CPT/HCPCS: 93005; 99214 ==

== ENCOUNTER 2024-12-10 07:17 | Outpatient (CLI) | payer MEDICARE, SELFPAY ==
[2024-12-10 07:29] VITALS: BMI 27.3
--- NOTE | 2024-12-10 07:32 | ECG_ITS ---
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 Interpretive Statements Lung unchanged pre/post procedure; Intraprocedure shortess of breath; Symptoms resoled by discharge PROCEDURE: At the baseline, the EKG revealed normal sinus rhythm with a normal ST Ts.. The baseline heart was 67 bpm with a blood pressue of 161/82 mm of Hg Lexiscan was infused over a period of 20 seconds. A total of 0.4 milligrams of Lexiscan was infused. The stress phase was continued for a total of 5 minutes. Heart rate at the end of the stress phase was 94 bpm with a blood pressure 193/87 mm of Hg. The EKG at the peak infusion revealed no significant changes. Sestamibi was injected 20 seconds after the Lexiscan infusion. Heart rate at the end of the recovery phase was 79 bpm with a blood pressure of 175/81 mm of Hg. CONCLUSION: 1. No significant EKG changes with the LexiScan infusion 2. No LexiScan induced chest pain or cardiac arrhythmia 3. Normal blood pressure and heart rate response 4. Sestamibi/sestamibi perfusion scan pending; see separate report. Electronically Signed On 12-16-2024 10:18:30 CDT by Lida Salas M.D. [email or web address]
--- NOTE | 2024-12-10 07:32 | NMCV_ITS ---
NM alessandro perf SPECT r/s* [id number] Miladys Henriquez Age: 69 Gender: F : 1955 Exam Date: 12/10/2024 08:23 Ordering Phys: Marielle Huertas NP Technologist: AIMEE Guerin Exam Location: [facility] Indications: CP STRESS TEST Please [facility] IMAGE PROTOCOL Rest/Stress 1 Lexiscan Day Radiopharmaceutical Dose (mCi) Administration Site Administered by Rest: Tc-99m 10.5 IV AIMEE Guerin Sestamibi Stress:Tc-99m 32.9 IV AIMEE Steiner Sestamibi Rest: 10-Dec-2024 60 Discovery 630 Stress: 10-Dec-2024 30 Discovery 630 0.4mg Lexiscan. Images obtained in supine and prone position. SPECT RESULTS Technical Quality: Good Raw Data Analysis: Normal Image Corrections: No attenuation or motion correction applied Summed Stress Score: 0 Summed Rest Score: 0 Summed Difference Score: 0 PERFUSION FINDINGS Fairly uniform myocardial tracer uptake with no significant Perfusion normalities FUNCTIONAL RESULTS (calculated via Gated SPECT) Stress Image LV EF (%): 73 Stress EDV (mL):71 TID: 0.91 Stress ESV (mL):19 FUNCTIONAL FINDINGS: Segmental wall motion analysis revealing no gross wall motion abnormalities IMPRESSIONS 1. Myocardial perfusion imaging revealing uniform myocardial tracer uptake with no significant perfusion abnormalities. 2. Normal LV ejection fraction of 73%. 3. LV wall motion analysis revealing no gross wall motion abnormalities. 4. Normal LV volume Low probability for coronary ischemia, based on the above findings Compared to the study from 10/16/2023, there may not be a significant change Dr Lida Salas MD FACC (Electronically Signed) Final Date: 10 December 2024 12:21 S
--- NOTE | 2024-12-10 07:45 | USCV_ITS ---
Miladys Henriquez Age: 69 Gender: F : 1955 Exam Date: 12/10/2024 07:53 Ordering Phys: Marielle Huertas NP Technologist: [place]am [place] [facility] [place]: cp murmur BP: 140 / 80 HR: 71 Rhythm: Sinus Technical Quality: Adequate MEASUREMENTS (Male / Female) Normal Values 2D ECHO LV Diastolic Diameter PLAX 4.3 cm 4.2 - 5.9 / 3.9 - 5.3 cm IVS Diastolic Thickness 1.1 cm 0.6 - 1.0 / 0.6 - 0.9 cm IVS Systolic Thickness 1.7 cm LVPW Diastolic Thickness 1.3 cm 0.6 - 1.0 / 0.6 - 0.9 cm LVPW Systolic Thickness 2.0 cm LVOT Diameter 2.3 cm LV Ejection Fraction 2D Teich 62.4 % LV Ejection Fraction MOD 4C 61.5 % LV Ejection Fraction MOD 2C 66.2 % LV Ejection Fraction 2C AL 67.0 % LA Diameter 4.0 cm RA Systolic Volume 4C AL 39.6 ml RA Systolic Volume 4C MOD 37.8 ml LA Sys Volume AL 48.6 cm cubed LA Sys Volume Index AL 24.8 cm cubed/m squared Aorta at Sinotubular Diameter 3.0 cm IVC Diameter 1.8 cm M-MODE LA Ao Ratio MM 1.2 AV Cusp Separation MM 2.6 cm DOPPLER AV Peak Velocity 282.2 cm/s LVOT Peak Velocity 130.0 cm/s AV Area Cont Eq vti 3.3 cm squared AV Area Cont Eq pk 1.9 cm squared MV Peak Velocity 144.0 cm/s MV Area PHT 3.8 cm squared Mitral E to A Ratio 1.0 TV Peak Velocity 248.0 cm/s TR Peak Velocity 255.0 cm/s TR Peak Gradient 26.0 mmHg TV Peak E Velocity 69.0 cm/s PV Peak Velocity 117.0 cm/s FINDINGS Left Ventricle Left ventricle is normal size. LV systolic function is normal with EF of 60-65%. No regional wall motion abnormalities are seen. Right Ventricle Normal in size and function Right Atrium Normal in size Left Atrium Normal in size Mitral Valve Structurally normal mitral valve. Mild mitral regurgitation Aortic Valve Structurally normal aortic valve. No significant stenosis. Mild aortic regurgitation. Tricuspid Valve Mild tricuspid regurgitation. Pulmonary artery systolic pressure is normal. Pulmonic Valve Not well visualized Pericardium Normal Aorta Normal in size IVC Appears to be normal CONCLUSIONS LV systolic function is normal with EF of 60-65% Mild mitral regurgitation Mild aortic regurgitation Mild tricuspid regurgitation Yan Roman MD (Electronically Signed) Final Date: 10 December 2024 13:21 S
[2024-12-10 09:11] VITALS: BP 175/81; PULSE 78
== END 2024-12-10 07:18 | disposition home or self-care (01) ==
LOC: RAD 07:18
PROVIDERS: PCP Nurse Practitioner Family; Visit Provider Nurse Practitioner Family
DX: I08.3 Combined rheumatic disorders of mitral, aortic and tricuspid valves (principal); R06.02 Shortness of breath
CPT/HCPCS: 36415; 78452; 93017; 93306; 96374; A9500; J2785; J9999

== ENCOUNTER → 2025-01-20 13:57 | Outpatient (BNVA) | payer MEDICARE, SELFPAY | PROVIDERS: PCP Nurse Practitioner Family; Visit Provider Internal Medicine | DX: E11.9 Type 2 diabetes mellitus without complications (principal); M80.00XD Age-related osteoporosis with current pathological fracture, unspecified site, subsequent encounter for fracture with routine healing; E27.1 Primary adrenocortical insufficiency; E87.1 Hypo-osmolality and hyponatremia; I71.40 Abdominal aortic aneurysm, without rupture, unspecified; E66.3 Overweight; R13.10 Dysphagia, unspecified | CPT/HCPCS: 80053; 80061; 82043; 82306; 83036; 84244 ==

== ENCOUNTER → 2025-01-22 09:01 | Outpatient (BNVA) | payer MEDICARE, SELFPAY | PROVIDERS: PCP Nurse Practitioner Family; Visit Provider Internal Medicine | DX: R73.03 Prediabetes (principal); E27.1 Primary adrenocortical insufficiency; E87.1 Hypo-osmolality and hyponatremia; M81.0 Age-related osteoporosis without current pathological fracture; I71.40 Abdominal aortic aneurysm, without rupture, unspecified; E66.3 Overweight; R13.10 Dysphagia, unspecified | CPT/HCPCS: 99214 ==

== ENCOUNTER → 2025-02-02 14:54 | Outpatient (BNVA) | payer MEDICARE, SELFPAY | PROVIDERS: PCP Nurse Practitioner Family; Visit Provider Internal Medicine Cardiovascular Disease | DX: I25.10 Atherosclerotic heart disease of native coronary artery without angina pectoris (principal); I10 Essential (primary) hypertension; E78.5 Hyperlipidemia, unspecified; J44.89 Other specified chronic obstructive pulmonary disease; E27.1 Primary adrenocortical insufficiency; Z87.891 Personal history of nicotine dependence; J44.9 Chronic obstructive pulmonary disease, unspecified; R06.02 Shortness of breath | CPT/HCPCS: 99214 ==

== ENCOUNTER → 2025-02-09 13:50 | Outpatient (BNVA) | payer MEDICARE, SELFPAY | PROVIDERS: PCP Nurse Practitioner Family; Visit Provider Internal Medicine | DX: J44.89 Other specified chronic obstructive pulmonary disease (principal); J43.9 Emphysema, unspecified; R91.1 Solitary pulmonary nodule; Z87.891 Personal history of nicotine dependence; J44.9 Chronic obstructive pulmonary disease, unspecified | CPT/HCPCS: 36415; 85025; 99204; Q3014 ==

== ENCOUNTER → 2025-03-12 14:03 | Outpatient (BNVA) | payer MEDICARE, SELFPAY | PROVIDERS: PCP Nurse Practitioner Family; Visit Provider Internal Medicine | DX: J44.89 Other specified chronic obstructive pulmonary disease (principal); J43.9 Emphysema, unspecified; R91.8 Other nonspecific abnormal finding of lung field; G47.33 Obstructive sleep apnea (adult) (pediatric); Z87.891 Personal history of nicotine dependence | CPT/HCPCS: 99203; 99214; Q3014 ==

== ENCOUNTER 2025-03-24 08:03 | Outpatient (CLI) | payer MEDICARE, SELFPAY ==
[2025-03-24 08:29] VITALS: PULSE 72; RESP 18; O2SAT 96
== END 2025-03-24 08:04 | disposition home or self-care (01) ==
PROVIDERS: PCP Nurse Practitioner Family; Visit Provider Internal Medicine
DX: J44.9 Chronic obstructive pulmonary disease, unspecified (principal)
CPT/HCPCS: 94060; 94726; 94729; J7613

== ENCOUNTER 2025-03-24 08:56 | Outpatient (CLI) | payer MEDICARE, SELFPAY ==
--- NOTE | 2025-03-24 09:03 | MM_ITS ---
WS: [id number] BILATERAL 3D TOMOSYNTHESIS DIGITAL SCREENING MAMMOGRAPHY WITH CAD CLINICAL INFORMATION: SCREENING HISTORY: Screening mammogram. No current complaints. COMPARISON: 2023 TECHNIQUE: Bilateral CC and MLO views. FINDINGS: Scattered fibroglandular densities bilaterally. No suspicious focal mass, asymmetry, calcifications, or architectural distortion. No evidence of malignancy. Incidental punctate calcifications MM/MM scr BI tomosynthesis [id number] IMPRESSION: DENSITY: There are scattered areas of fibroglandular density. BI-RADS: 2 - Benign. FOLLOW UP: 1 Year Follow-up Recommend return to annual screening mammography.
== END 2025-03-24 08:57 | disposition home or self-care (01) ==
LOC: RAD 09:00
PROVIDERS: PCP Nurse Practitioner Family; Visit Provider Nurse Practitioner Family
DX: Z12.31 Encounter for screening mammogram for malignant neoplasm of breast (principal); R92.323 Mammographic fibroglandular density, bilateral breasts
CPT/HCPCS: 77063; 77067

== ENCOUNTER 2025-04-27 13:11 | Oncology outpatient (recurring) (ONCR) | payer MEDICARE, SELFPAY ==
[2025-04-27] MEDS: denosumab-bbdz 60 MG Syringe SUBCUT (14:01)
== END 2025-05-06 23:59 | disposition home or self-care (01) ==
LOC: ONCMED 13:11
PROVIDERS: PCP Nurse Practitioner Family; Visit Provider Internal Medicine
DX: M81.0 Age-related osteoporosis without current pathological fracture (principal); Z79.899 Other long term (current) drug therapy
CPT/HCPCS: 96372; Q5136